=== PATIENT | male | born 1955 | race Caucasian/White ===

== ENCOUNTER → 2017-09-01 | Outpatient (CLI) | payer OTHER ==
[~2017-09-01] MED LIST: AMARYL2 MG PO; AMARYL4 MG PO; ASPIR 8181 MG PO; BACTRIM DS TAB1 EACH PO; CYMBALTA30 MG PO; DARVOCET-N 1001 EACH PO; DESYREL100 MG PO; DESYREL50 MG; DOESN'T HAVE LIST; FLONASE 0.05%50 MCG NASAL; GENTAMICIN SU3 MG/ML OPHTHALMIC; HYDROCODONE-AP1 EAC6 PO; JANUMET 50-1,01 EACH PO; LATANOPROST 0.2.5 ML OPHTHALMIC; LIPITOR40 MG PO; LISINOPRIL10 MG PO; LISINOPRIL20 MG PO; NEURONTIN 300300 M1 PO; PRINIVIL40 MG PO; TRAMADOL 50 MG50 MG PO; TRAZODONE HCL50 MG PO; VITAMIN B-12500 MCG PO; ZPAK PO
== END ==
LOC: M.RAD 09:34
DX: M54.2 Cervicalgia (principal); M25.511 Pain in right shoulder

== ENCOUNTER → 2017-09-11 | Outpatient (CLI) | payer OTHER | LOC: M.MRI 06:46 | DX: M54.12 Radiculopathy, cervical region (principal); M50.21 Other cervical disc displacement, high cervical region; M50.221 Other cervical disc displacement at C4-C5 level; M50.222 Other cervical disc displacement at C5-C6 level; M50.223 Other cervical disc displacement at C6-C7 level; M47.892 Other spondylosis, cervical region; R93.7 Abnormal findings on diagnostic imaging of other parts of musculoskeletal system ==

== ENCOUNTER → 2018-01-02 | Outpatient (CLI) | payer OTHER | LOC: M.RAD 07:28 | DX: J84.10 Pulmonary fibrosis, unspecified (principal); E11.42 Type 2 diabetes mellitus with diabetic polyneuropathy; R10.12 Left upper quadrant pain; R41.0 Disorientation, unspecified ==

== ENCOUNTER → 2018-01-14 | Outpatient (CLI) | payer OTHER | LOC: M.RAD 01-02 08:10 → M.ULTRA 09:51 | DX: I65.23 Occlusion and stenosis of bilateral carotid arteries (principal); E11.42 Type 2 diabetes mellitus with diabetic polyneuropathy; R10.12 Left upper quadrant pain; R41.0 Disorientation, unspecified ==

== ENCOUNTER → 2018-10-08 | Outpatient (CLI) | payer OTHER ==
[~2018-10-08] VITALS: Ht 167.6 cm; Wt 90.7 kg
[~2018-10-08] MED LIST changes: +BRILINTA90 MG PO; +GLUCOTROL5 MG PO; +LANTUS SUBQ; +NITROGLYCERIN0.4 MG SUBLING; +RANEXA500 MG PO; +TOPROL XL25 MG PO; +VELTASSA8.4 GM PO; +VITAMIN D1000 UNI1 PO
[2018-10-08 08:35] VITALS: BP 146/76
[2018-10-08 08:41] LABS: HEMATOCRIT 36.8 % (42.0-52.0); HEMOGLOBIN 12.3 gm/dL (14.0-18.0); MCH 27.2 pg (26.0-34.0); MCHC 33.3 g/dL (28.0-37.0); MCV 81.7 fL (80.0-100.0); MPV 7.9 fl. (7.2-11.1); RBC 4.51 mil/uL (4.50-6.00); RDW-CV 13.9 % (10.5-14.5); WBC 7.1 thou/uL (4.0-11.0)
[2018-10-08 08:56] LABS: APTT 26.5 Seconds (25.0-31.3); PROTIME 9.9 Seconds (9.20-11.50)
[2018-10-08 09:00] LABS: ALBUMIN 3.5 g/dL (3.4-5.0); ALKALINE PHOSPHATASE 114 U/L (46-116); ANION GAP 7 mmol/L (7-16); BUN 35 mg/dL (7-18); CALCIUM 8.7 mg/dL (8.5-10.1); CHLORIDE 104 mmol/L (98-107); CHOLESTEROL 126 mg/dL (<200); CO2 25 mmol/L (21-32); CREATININE 2.2 mg/dL (0.6-1.3); GLUCOSE 247 mg/dL (70-99); HDL CHOLESTEROL 33 mg/dL (>40); LDL CHOLESTEROL 53 mg/dL (<100); POTASSIUM 4.7 mmol/L (3.5-5.1); SERUM ASSESSMENT Clear; SGOT 15 U/L (15-37); SGPT 22 U/L (30-65); SODIUM 136 mmol/L (136-145); TC:HDL 3.8 Ratio (Not establshd); TOTAL BILIRUBIN 0.4 mg/dL (<0.1-1.0); TOTAL PROTEIN 7.1 g/dL (6.4-8.2); TRIGLYCERIDE 202 mg/dL (<150); VLDL 40 mg/dL (<40)
[2018-10-08 10:06] VITALS: BP 138/77
[2018-10-08 10:32] VITALS: BP 124/59
[2018-10-08 10:47] VITALS: BP 130/66
[2018-10-08 11:01] VITALS: BP 132/67
[2018-10-08 11:16] VITALS: BP 134/74
--- NOTE | 2018-10-08 13:52 | CARD ---
[address] [address] CARDIAC CATH REPORT Name: RENATE WEBB Room: [facility]Y Tiki#: [id number] Admission: 10/08/18 Attend Phys: Bryant Sinha MD Discharge: Date of : 57 Report #: [id number] THIS REPORT FOR: //name// APPROVED REPORT Study performed: 10/08/2018 08:59:39 Patient Details Patient Status: Out-Patient Room #: The patient is a 63 year-old male Event Personnel Bryant Sinha Gas Prover, Mallory Truong RN Associate Civil Engineer, Catherine Hayes Monitor, Asael Dubose Scrub Procedures Performed Art Access - R radial artery , [facility] [id number] [facility] Procedure Narrative The patient was brought electively to the Cardiac Catheterization Laboratory and was prepped and draped in a sterile manner. The right wrist was infiltrated with 2% Lidocaine subcutaneous anesthesia. A Slender Glidesheath sheath was inserted into the right radial artery. Coronary angiography was performed using coronary diagnostic catheters. The right coronary system was accessed and visualized with a DCR: Houston[place] 4.0 5fr catheter. The left coronary system was accessed and visualized with a DCR: Houstonia 4.0 5fr catheter. Left ventricular/Aortic Valve gradient assessed via catheter pullback. The patient tolerated the procedure well and there were no complications associated with the procedure. Intraoperative Conscious Sedation Sedation start time: 09:20 Case end Time: 09:52 Fentanyl 25 mcg Versed 1 mg Fluoro Time: 3.1 minutes Dose: DAP 98553 cGycm2 921.61 mGy Contrast Type and Amount: Visipaque 85 ml Coronary Angiography The patient's coronary anatomy is right [place] [address] CARDIAC CATH REPORT Name: RENATE WEBB Room: [facility]#: [id number] Admission: 10/08/18 Attend Phys: Bryant Sinha MD Discharge: Date of : 57 Report #: [id number] Left Main Fairly long left main with 40% proximal to mid tubular stenosis. LAD 30% mid and 70% distal stenosis. Diagonal 1 No occlusive disease noted. Diagonal 2 No occlusive disease noted. Diagonal 3 No occlusive disease noted. Circumflex 60% tubular proximal narrowing. OM1 Moderate in size and branched. No occlusive disease noted. Right Coronary 10% proximally 20% mid and 30% distal narrowing. The vessel is diffusely moderately plaqued. R PDA 50% mid stenosis. RPLV Marginal branch and free of significant disease. Ramus Large branching vessel with 80% stenosis at the takeoff of a large branched. Left Ventriculography Left Ventriculography was not performed. Hemodynamics The aortic pressure is 123/64 mmHg with a mean of mmHg. The left ventricular pressure is 127/6 mmHg with a mean of mmHg. The left ventricular end diastolic pressure is 14 mmHg. There was no gradient across the aortic valve upon pullback. Conclusion 1. Moderate coronary artery disease as outlined above. 2. Minimally elevated left ventricular end-diastolic pressure. Recommendations 1. Continue aggressive risk factor modification and medical management. Consider percutaneous coronary intervention to the LAD and circumflex symptoms not controlled with medication. <ELECTRONICALLY SIGNED> By: Bryant Sinha MD, FACC 10/08/18 1351 1351 1351Bryant Sinha MD, FACC /INF
== END | disposition home or self-care (01) ==
LOC: M.CL 07:58
PROVIDERS: Internal Medicine Cardiovascular Disease
DX: I25.10 Atherosclerotic heart disease of native coronary artery without angina pectoris (principal); I11.0 Hypertensive heart disease with heart failure; I50.1 Left ventricular failure, unspecified; E11.9 Type 2 diabetes mellitus without complications; M19.90 Unspecified osteoarthritis, unspecified site; Z79.82 Long term (current) use of aspirin; Z79.899 Other long term (current) drug therapy; Z98.890 Other specified postprocedural states

== ENCOUNTER 2018-11-05 10:31 | Observation (INO) | payer OTHER ==
[2018-11-05] VITALS (17 sets, daily range): BP systolic 124–164; BP diastolic 65–87
[~2018-11-05] VITALS: Ht 167.6 cm; Wt 90.7 kg
--- NOTE | ~2018-11-05 | H ---
[address] [address] HISTORY AND PHYSICAL Name: RENATE WEBB Room: [address] [place]#: [id number] Admission: 11/05/18 Attend Phys: Bryant Sinha MD Discharge: 11/06/18 Date of : 57 Report #: [id number] THIS REPORT FOR: //name// Please refer to the History and Physical performed in the physician's office. By: 0648Medical Records Staff RACHEAL /MEHNAZ
[~2018-11-05 10:31] MED LIST changes: -BRILINTA90 MG PO; -NITROGLYCERIN0.4 MG SUBLING; -RANEXA500 MG PO; -VITAMIN D1000 UNI1 PO
[2018-11-05] MEDS ORDERED: VITAMIN D1000 UNI1 PO (11:22)
[2018-11-05] MEDS ORDERED: VELTASSA8.4 GM PO (11:24)
[2018-11-05] MEDS ORDERED: RANEXA500 MG PO (11:24)
[2018-11-05 11:28] LABS: HEMATOCRIT 35.4 % (42.0-52.0); HEMOGLOBIN 11.9 gm/dL (14.0-18.0); MCH 27.5 pg (26.0-34.0); MCHC 33.7 g/dL (28.0-37.0); MCV 81.4 fL (80.0-100.0); MPV 7.6 fl. (7.2-11.1); RBC 4.35 mil/uL (4.50-6.00); WBC 6.8 thou/uL (4.0-11.0)
[2018-11-05 11:36] LABS: CALCIUM 9.3 mg/dL (8.5-10.1); CREATININE 2.5 mg/dL (0.6-1.3); POTASSIUM 5.6 mmol/L (3.5-5.1)
[2018-11-05 11:55] LABS: APTT 27.9 Seconds (25.0-31.3); PROTIME 10.4 Seconds (9.20-11.50)
--- NOTE | 2018-11-05 14:17 | CARD ---
[address] [address] CARDIAC CATH REPORT Name: RENATE WEBB Room: [address] [place]#: [id number] Admission: 11/05/18 Attend Phys: Bryant Sinha MD Discharge: Date of : 57 Report #: [id number] THIS REPORT FOR: //name// APPROVED REPORT Study performed: 11/05/2018 10:48:01 Patient Details Patient Status: Out-Patient Room #: The patient is a 63 year-old male Event Personnel Dr. Ernestine Plascencia Procedures Performed Left heart catheterization selective coronary artery IV and percutaneous coronary intervention to the LAD with deployment of 2 drug-eluting stents Indication Chest pain Risk Factors Hypercholesterolemia, Hypertension Admission/Lab Medications/Medications given during procedure Aspirin, Platelet Aff. Inhib., Angiomax bolus and infusion Procedure Narrative The patient was brought electively to the Cardiac Catheterization Laboratory and was prepped and draped in a sterile manner. The right femoral was infiltrated with 2% Lidocaine subcutaneous anesthesia. A 6 Maori sheath was inserted into the right femoral artery. Coronary angiography was performed using coronary diagnostic catheters. The left coronary system was accessed and visualized with a Diagnostic catheter. Left ventricular/Aortic Valve gradient assessed via catheter pullback. Pre-demployment femoral angiogram was performed . Closure device was deployed with a 6 Fr Angioseal. There was no hematoma. Diagnostic Cath Left Main 40% tubular narrowing LAD 75% tubular mid vessel stenosis with 90% focal distal stenosis Circumflex 75% tubular narrowing of the midportion of this [address] [address] CARDIAC CATH REPORT Name: RENATE WEBB Room: [address] [place]#: [id number] Admission: 11/05/18 Attend Phys: Bryant Sinha MD Discharge: Date of : 57 Report #: [id number] nondominant vessel Right Coronary Dominant vessel with 70% distal narrowing as recently defined Left Ventriculography Left Ventriculography was not performed. Hemodynamics The aortic pressure is 130/70 mmHg with a mean of mmHg. The left ventricular end diastolic pressure is 22 mmHg. There was no gradient across the aortic valve upon pullback. PCI Technique Lesion Anticoagulation was achieved with Angiomax. Percutaneous coronary intervention was performed on the distal LAD. The lesion stenosis prior to intervention was 90% with [place] 3 flow. BALLOON DILATION A Balloon catheter 2.0 by a trek was inserted and inflated up to 12atm for 15seconds. STENT DEPLOYMENT A drug-eluting stent 2.0 x 12 saranya was inserted and inflated up to 10atm for 12seconds. POST STENT DEPLOYMENT BALLOON DILATION A Balloon catheter 2.0 x 8 NC trek was inserted and inflated up to 16atm for 10seconds. Final angiography reveals 0 % stenosis with [place] 3 flow. PCI Technique Lesion 2 Percutaneous Coronary Intervention was performed on the mid LAD. The lesion stenosis prior to intervention was 75% with [place] 3 flow. Stent Deployment A drug-eluting stent 2.25 x 18 mm saranya was inserted and inflated up to 16atm for 15seconds. Final angiography reveals 0 % stenosis with [place] 3 flow. Conclusion #1 significant coronary artery disease characterized by the following: [place] [address] CARDIAC CATH REPORT Name: RENATE WEBB Room: [address] [place]#: [id number] Admission: 11/05/18 Attend Phys: Bryant Sinha MD Discharge: Date of : 57 Report #: [id number] A 40% tubular left main coronary artery narrowing B 75% tubular mid with 90% focal distal LAD stenosis C 75% narrowing in the midportion of the nondominant circumflex D recently defined dominant right coronary artery with 70% distal narrowing #2 moderate elevation of left ventricular end-diastolic pressure at rest #3 successful percutaneous coronary intervention with deployment of sequential drug-eluting stents at the sites of 75% mid and 90% distal LAD stenosis with 0% residual narrowings at both sites and [place]-3 flow to the distal vessel Recommendations Cardiac Risk Reduction Program Aggressive Medical Therapy Medications Administered Aspirin (any) Ticagrelor Diagnostic Cath Approved by: Bryant Sinha MD Date/Time: 11/05/2018 14:16:08 <ELECTRONICALLY SIGNED> By: Elpidio Plascencia MD, [facility] 11/05/18 1417 1417 1417John Yana Plascencia MD, [facility] /INF
--- NOTE | 2018-11-05 18:06 | NUR ---
PT IS A NEW ADMISSION RECEIVED FROM INSPECTOR ASSEMBLY.RECEIVED REPORT FROM INSPECTOR ASSEMBLY NURSE AND ASSUMED CARE OF PT AT 1510.PT IS A/OX4.TRACING SR ON THE MONITOR.IV PATENT WITH FLUID INFUSING AT 150ML/HR.RT GROIN CATH CLEAN DRY AND INTACT.POST CATH PROTOCOL FOLLOWED.POST CATH VSS.ON RA.ADMISSION PAPER WORK COMPLETED AND CHARTED.PT EDUCATED ON IMMOBILIZATION FOR 6 HRS POST CATH.CALL LIGHT AND FALL PRECAUTIONS IN PLACE.HRLY ROUNDING DONE.RESUMED HEART HEALTHY DIET.WILL CONTINUE TO MONITOR.
--- NOTE | 2018-11-05 18:19 | NUR ---
I have reviewed the documentation by MICKY MYERS from 729 to 1819 and I concur with it.
--- NOTE | 2018-11-05 18:25 | EKG ---
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: : 1955 Requested By: Bryant Sinha Order Number: [id number] Reading MD: Bryant Sinha Measurements Intervals [place] Rate: 65 P: 22 ND: 210 QRS: -3 QRSD: 91 T: 11 QT: 375 QTc: 390 Interpretive Statements Sinus rhythm Abnormal R-wave progression, early transition LVH by voltage Anterior ST elevation, probably due to LVH Compared to ECG 06/22/2017 13:04:37 Left ventricular hypertrophy now present ST (T wave) deviation still present Electronically Signed On 11-05-2018 18:25:31 CDT by Bryant Sinha [email or web address] <ELECTRONICALLY SIGNED> By: Bryant Sinha MD, FAC 11/05/18 1825 1129 1129 Bryant Sinha MD, [facility] /EPI
--- NOTE | 2018-11-05 18:27 | EKG ---
[place] [address] ELECTROCARDIOGRAM REPORT Name: RENATE WEBB Room: [address] M.R.#: [id number] Admission: 11/05/18 Attend Phys: Bryant Sinha MD Discharge: Date of : 57 Report #: [id number] THIS REPORT FOR: //name// [facility] Test Date: 2018-11-05 Test Time: 13:30:37 Pat Name: RENATE WEBB Department: Room: 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: : 1955 Requested By: Elpidio Plascencia Order Number: [id number] Reading MD: Bryant Sinha Measurements Intervals [place] Rate: 64 P: 23 MA: 215 QRS: -5 QRSD: 94 T: 11 QT: 383 QTc: 395 Interpretive Statements Sinus rhythm Borderline prolonged MA interval ST elevation, consider early repolarization Compared to ECG 06/22/2017 13:04:37 ST (T wave) deviation still present Electronically Signed On 11-05-2018 18:27:00 CDT by Bryant Sinha [email or web address] <ELECTRONICALLY SIGNED> By: Bryant Sinha MD, FAC 11/05/18 1827 1330 1330 Bryant Sinha MD, [facility] /EPI
[2018-11-06 00:10] VITALS: BP 131/71
[2018-11-06 00:30] VITALS: BP 131/71
[2018-11-06 04:00] VITALS: BP 103/61
[2018-11-06 05:16] LABS: ALKALINE PHOSPHATASE 82 U/L (46-116); ANION GAP 11 mmol/L (7-16); BUN 44 mg/dL (7-18); CALCIUM 8.7 mg/dL (8.5-10.1); CHLORIDE 102 mmol/L (98-107); CHOLESTEROL 124 mg/dL (<200); CO2 22 mmol/L (21-32); GLUCOSE 234 mg/dL (70-99); HDL CHOLESTEROL 33 mg/dL (>40); LDL CHOLESTEROL 73 mg/dL (<100); POTASSIUM 5.4 mmol/L (3.5-5.1); SGOT 12 U/L (15-37); SGPT 16 U/L (30-65); SODIUM 135 mmol/L (136-145); TC:HDL 3.8 Ratio (Not establshd); TOTAL BILIRUBIN 0.4 mg/dL (<0.1-1.0); TOTAL PROTEIN 6.4 g/dL (6.4-8.2); TRIGLYCERIDE 92 mg/dL (<150); VLDL 18 mg/dL (<40)
[2018-11-06 05:20] LABS: SERUM ASSESSMENT Clear
--- NOTE | 2018-11-06 07:48 | NUR ---
RECEIVED REPORT AND ASSUMED CARE AT 1900. VSS. CARDIAC MONITORING IN PLACE. PT DENIES COMPLAINTS OF PAIN. PT UP SBA, ON RA. BED LOCKED IN LOWEST POSITION, CALL LIGHT WITHIN REACH, BED ALARM ON. PT CATH SITE TO R GROIN MONITORED THROUGHOUT SHIFT. CLEAN/INTACT/ NO SIGN OF HEMATOMA. HOURLY ROUNDING COMPLETED AND ALL NEEDS MET
[2018-11-06 08:00] VITALS: BP 111/62
[2018-11-06 08:30] VITALS: BP 141/79
[2018-11-06] MEDS ORDERED: BRILINTA90 MG PO (08:55)
[2018-11-06 09:19] VITALS: BP 111/62
--- NOTE | 2018-11-06 09:49 | NUR ---
ASSUMED PT. CARE AND RECEIVED REPORT AT 0730. PT A/OX4, VSS, MONITOR ON TRACING SR 1ST. PT. DENIES CURRENT PAIN/SOB. ON RA @ 95%. FULL ASSESSMENT COMPLETED, REFER TO CHARTING. RIGHT GROIN DRESSING C/D/I. FAMILY AT BEDSIDE. PT. PLAN TO DC TODAY. CALL LIGHT IN REACH, WILL CONTINUE WITH PLAN OF CARE.
--- NOTE | 2018-11-06 11:05 | NUR ---
DC ORDERS RECEIVED. IV AND MONITOR REMOVED. PT. AND SPOUSE GIVEN DC INSTRUCTIONS, SCRIPTS, AND CARENOTES. PT. ALSO GIVEN WRITTEN INFO ON POTASSIUM RICH FOODS PER REQUEST SO HE COULD AVOID THEM. PT. LEFT VIA WHEELCHAIR TO RETURN HOME IN PERSONAL VEHICLE, ALL BELONGINGS ACCOUNTED FOR.
--- NOTE | 2018-11-06 12:18 | EKG ---
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
== END 2018-11-06 11:12 | disposition home or self-care (01) ==
LOC: M.CL 10:31 → M.TBA-CV 13:12 → M.2W 13:12
PROVIDERS: Internal Medicine; ADMIT Internal Medicine Cardiovascular Disease
DX: I20.0 Unstable angina (principal); E78.5 Hyperlipidemia, unspecified; I12.9 Hypertensive chronic kidney disease with stage 1 through stage 4 chronic kidney disease, or unspecified chronic kidney disease; E11.22 Type 2 diabetes mellitus with diabetic chronic kidney disease; N18.9 Chronic kidney disease, unspecified

== ENCOUNTER 2018-11-12 18:11 | Inpatient (IN) | payer OTHER ==
[~2018-11-12] VITALS: Ht 167.6 cm; Wt 90.7 kg
[~2018-11-12 18:11] MED LIST changes: +BRILINTA90 MG PO; +RANEXA500 MG PO; +VITAMIN D1000 UNI1 PO
[2018-11-12 18:37] LABS: ABSOLUTE BASOPHILS 0.1 thou/uL (0.0-0.2); ABSOLUTE EOSINOPHILS 0.6 thou/uL (0.0-0.7); ABSOLUTE LYMPHOCYTES 1.2 thou/uL (0.8-5.3); ABSOLUTE MONOCYTES 0.6 thou/uL (0.0-1.2); ABSOLUTE NEUTROPHILS 5.1 thou/uL (1.6-8.1); BASOPHILS 1.3 %; EOSINOPHILS 8.3 %; HEMATOCRIT 34.3 % (42.0-52.0); HEMOGLOBIN 11.5 gm/dL (14.0-18.0); LYMPHOCYTES 15.8 %; MCH 27.1 pg (26.0-34.0); MCHC 33.6 g/dL (28.0-37.0); MCV 80.9 fL (80.0-100.0); MONOCYTES 7.9 %; MPV 7.4 fl. (7.2-11.1); NUCLEATED RBCS 0 /100WBC; PLATELET COUNT* 329 thou/uL (150-400); POLYS 66.7 %; RBC 4.24 mil/uL (4.50-6.00); RDW-CV 14.1 % (10.5-14.5); WBC 7.6 thou/uL (4.0-11.0)
[2018-11-12 18:43] LABS: INR 0.9; PROTIME 9.7 Seconds (9.20-11.50)
[2018-11-12 18:51] LABS: CALCIUM 8.7 mg/dL (8.5-10.1); CREATININE 2.4 mg/dL (0.6-1.3); POTASSIUM 4.6 mmol/L (3.5-5.1); TROPONIN-I LEVEL 0.31 ng/mL (<0.06)
[2018-11-12 18:53] LABS: ALBUMIN 3.2 g/dL (3.4-5.0); TOTAL BILIRUBIN 0.3 mg/dL (<0.1-1.0); TOTAL PROTEIN 7.4 g/dL (6.4-8.2)
[2018-11-12 20:50] VITALS: BP 146/73
[2018-11-12 21:11] VITALS: BP 155/75
[2018-11-13] VITALS: BP 172/80
[2018-11-13 04:00] VITALS: BP 114/70
[2018-11-13 08:00] VITALS: BP 124/61
[2018-11-13 09:59] LABS: CALCIUM 8.8 mg/dL (8.5-10.1); CREATININE 2.3 mg/dL (0.6-1.3); MAGNESIUM 1.5 mg/dL (1.8-2.4); POTASSIUM 4.4 mmol/L (3.5-5.1)
--- NOTE | 2018-11-13 11:43 | EKG ---
[place] [address] ELECTROCARDIOGRAM REPORT Name: RENATE WEBB Room: [address] ADM IN M.R.#: [id number] Admission: 11/12/18 Attend Phys: Rios Oglesby MD Discharge: Date of : 57 Report #: [id number] THIS REPORT FOR: //name// 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 11/13/18 1143 13 13 Elpidio Plascencia MD, FACC /EPI
--- NOTE | 2018-11-13 13:13 | 2DMMODE ---
[place] [address] 2 D/M-MODE ECHOCARDIOGRAM Name: WEBBRENATE CALVIN Room: [address] IN [facility]#: [id number] Admission: 11/12/18 Attend Phys: Rios Oglesby, Discharge: Date of : 57 Date of Service: 11/13/18 1313 Report #: [id number] THIS REPORT FOR: //name// ADDENDUM APPROVED REPORT Study performed: 11/13/2018 11:23:47 EXAM: Comprehensive 2D, Doppler, and color-flow Echocardiogram Patient Location: In-Patient Room #: [facility] Status: routine BSA: 2.00 HR: 67 bpm BP: 124/61 mmHg Rhythm: NSR Other Information Study Quality: Good Indications Dyspnea Chest Pain 2D Dimensions IVSd: 14.32 (7-11mm) LVOT Diam: 21.62 (18-24mm) LVDd: 40.55 mm PWd: 12.65 (7-11mm) Ascending Ao: 31.00 (22-36mm) LVDs: 19.44 (25-40mm) Aortic Root: 30.89 mm Volumes Left Atrial Volume (Systole) LA ESV Index: 29.70 mL/m2 Aortic Valve AoV Peak Flakito.: 1.30 m/s AO Peak Gr.: 6.71 mmHg LVOT Max P.62 mmHg AO Mean Gr.: 3.78 mmHg LVOT Mean P.60 mmHg LVOT Max V: 0.81 m/s AO V2 VTI: 26.31 cm LVOT Mean V: 0.60 m/s MARY KAY (VTI): 2.49 cm2 LVOT V1 VTI: 17.83 cm Mitral Valve E/A Ratio: 0.98 MV Decel. Time: 235.66 [place] [address] 2 D/M-MODE ECHOCARDIOGRAM Name: RENATE WEBB Room: [address] IN .R.#: [id number] Admission: 11/12/18 Attend Phys: Rios Oglesby, Discharge: Date of : 57 Date of Service: 11/13/18 1313 Report #: [id number] MV E Max Flakito.: 0.63 m/s MV PHT: 68.34 ms MVA (PHT): 3.22 cm2 TDI E/Lateral E': 7.88 E/Medial E': 9.00 Medial E' Flakito.: 0.07 m/s Lateral E' Flakito.: 0.08 m/s Pulmonary Valve PV Peak Flakito.: 1.03 m/s PV Peak Gr.: 4.27 mmHg Left Ventricle The left ventricle is normal size. There is normal LV segmental wall motion. Mild to moderate concentric left ventricular hypertrophy. Left ventricular systolic function is normal. LVEF is 60-65%. Transmitral Doppler flow pattern suggests impaired LV relaxation. Right Ventricle The right ventricle is normal size. The right ventricular systolic function is normal. Atria Left atrium is mildly dilated. The right atrium size is normal. Aortic Valve Mild aortic valve sclerosis. Trace aortic regurgitation. There is no aortic valvular stenosis. Mitral Valve Mitral valve leaflets are thickened. Trace mitral regurgitation. No evidence of mitral valve stenosis. Tricuspid Valve The tricuspid valve is normal in structure. Trace tricuspid regurgitation. No pulmonary hypertension. Pulmonic Valve The pulmonary valve is normal in structure. Trace pulmonic regurgitation. Great Vessels The aortic root is normal in size. IVC is normal in size and collapses >50% [place] [address] 2 D/M-MODE ECHOCARDIOGRAM Name: RENATE WEBB Room: [address] [place] [facility]#: [id number] Admission: 11/12/18 Attend Phys: Rios Oglesby, Discharge: Date of : 57 Date of Service: 11/13/18 1313 Report #: [id number] Pericardium There is no pericardial effusion. <Conclusion> The left ventricle is normal size. Mild to moderate concentric left ventricular hypertrophy. Left ventricular systolic function is normal. LVEF is 60-65%. Transmitral Doppler flow pattern suggests impaired LV relaxation. Left atrium is mildly dilated. Mild aortic valve sclerosis. Trace aortic regurgitation. Mitral valve leaflets are thickened. Trace mitral regurgitation. Trace tricuspid regurgitation. No pulmonary hypertension. IVC is normal in size and collapses >50% with inspiration. <ELECTRONICALLY SIGNED> By: Bryant Sinha MD, FACC 11/13/18 1313 12 12 Bryant Sinha MD, FACC /INF
[2018-11-13 14:45] VITALS: BP 124/61
[2018-11-13 15:50] VITALS: BP 116/69
[2018-11-13 19:35] VITALS: BP 125/72
[2018-11-14] VITALS (7 sets, daily range): BP systolic 103–150; BP diastolic 62–84
[2018-11-14 02:01] LABS: HEMATOCRIT 29.7 % (42.0-52.0); HEMOGLOBIN 10.2 gm/dL (14.0-18.0); MCH 27.8 pg (26.0-34.0); MCHC 34.3 g/dL (28.0-37.0); MPV 7.5 fl. (7.2-11.1); RBC 3.67 mil/uL (4.50-6.00); RDW-CV 14.2 % (10.5-14.5); WBC 7.2 thou/uL (4.0-11.0)
[2018-11-14 02:55] LABS: CALCIUM 8.8 mg/dL (8.5-10.1); CREATININE 2.2 mg/dL (0.6-1.3); MAGNESIUM 1.6 mg/dL (1.8-2.4); POTASSIUM 4.1 mmol/L (3.5-5.1)
[2018-11-15 00:12] VITALS: BP 147/76
[2018-11-15 01:34] LABS: HEMATOCRIT 30.9 % (42.0-52.0); HEMOGLOBIN 10.5 gm/dL (14.0-18.0); MCH 27.4 pg (26.0-34.0); MCHC 33.9 g/dL (28.0-37.0); MCV 80.9 fL (80.0-100.0); RBC 3.82 mil/uL (4.50-6.00); RDW-CV 14.3 % (10.5-14.5); WBC 6.7 thou/uL (4.0-11.0)
[2018-11-15 01:49] LABS: CALCIUM 8.9 mg/dL (8.5-10.1); CREATININE 2.1 mg/dL (0.6-1.3); MAGNESIUM 1.7 mg/dL (1.8-2.4); POTASSIUM 4.4 mmol/L (3.5-5.1); TROPONIN-I LEVEL 0.12 ng/mL (<0.06)
[2018-11-15 04:00] VITALS: BP 139/69
[2018-11-15 08:00] VITALS: BP 143/75
[2018-11-15] MEDS ORDERED: RANEXA500 MG PO (08:54)
[2018-11-15] MEDS ORDERED: NITROGLYCERIN0.4 MG SUBLING (08:54)
[2018-11-15 10:25] VITALS: BP 124/61
--- NOTE | 2018-11-15 12:13 | CON ---
[address] [address] CONSULTATION Name: WEBB,RENTAE Room: [address] IN M.R.#: [id number] Admission: 11/12/18 Attend Phys: Rios Oglesby MD Discharge: 11/15/18 Date of : 57 Report #: [id number] THIS REPORT FOR: //name// CC: Rios Sales INDICATION: Chest pain and elevated troponins consistent with non-ST elevation myocardial infarction. HISTORY OF PRESENT ILLNESS: The patient is a very pleasant 63-year-old gentleman who is well known to myself. He was recently taken to the agriculture laborer for elective percutaneous coronary intervention to the left anterior descending coronary artery. He had drug-eluting stents placed in the mid and distal LAD without complication. He has moderate nonocclusive disease involving the left main, proximal circumflex and distal right coronary artery as well. The patient has preserved left ventricular systolic function. He remains on dual antiplatelet therapy with Brilinta and aspirin. He presented to the hospital for recurrent chest pain. He had a slight bump in his troponin. He reports compliance with his dual antiplatelet therapy. The pain lasted for several hours and then resolved. His troponins were minimally elevated. His EKG did not show any acute ST segment changes. At the time of my interview, he is without complaint. CURRENT MEDICATIONS: Glipizide 5 mg p.o. daily, gabapentin 300 mg 2 tablets p.o. t.i.d., trazodone 50 mg at bedtime. Aspirin 81 mg daily, vitamin B12 500 mg daily, latanoprost eyedrops as directed, Flonase nasal spray 2 sprays daily, insulin Lantus 50 units at bedtime, metoprolol succinate 25 mg daily, vitamin D 1000 units b.i.d., Veltassa ____ grams p.o. daily, duloxetine 30 mg daily, atorvastatin 40 mg daily, lisinopril 10 mg daily, Brilinta 90 mg b.i.d. ALLERGIES: None documented. PAST MEDICAL HISTORY: 1. Coronary artery disease with recent percutaneous coronary intervention as outlined above. 2. Type 2 diabetes mellitus. 3. Hypertension. 4. Arthritis. 5. Peripheral vascular disease. 6. Chronic renal insufficiency, stage 3. FAMILY HISTORY: Noncontributory. SOCIAL HISTORY: The patient is a lifelong nonsmoker[place] [address] CONSULTATION Name: RENATE WEBB Room: [address]#: [id number] Admission: 11/12/18 Attend Phys: Rios Oglesby MD Discharge: 11/15/18 Date of : 57 Report #: [id number]. PHYSICAL EXAMINATION: VITAL SIGNS: Blood pressure 124/61, pulse 67 and regular. GENERAL: This is a pleasant gentleman in no distress. Mood and affect appropriate. HEENT: The patient is wearing glasses. Extraocular muscles intact. Mucous membranes are moist. NECK: Shows no jugular venous distention. There are no carotid bruits. CHEST: Reveals clear lung pretty without wheezes or rales. CARDIAC: Reveals a regular rhythm without gallop or murmur. ABDOMEN: Reveals normal bowel sounds. The abdomen is soft, nontender. EXTREMITIES: Shows no edema. Peripheral pulses 2+ and palpable. SKIN: Warm and dry. LABORATORY DATA: A 12-lead EKG shows sinus rhythm without acute ST or T-wave abnormality. Labs are reviewed. Electrolytes within normal limits. BUN 29, creatinine 2.3, serum glucose 110. Troponin on arrival 0.31 and subsequently 0.36, 0.34, 0.27. IMPRESSION AND RECOMMENDATIONS: 1. Non-ST elevation myocardial infarction. Doubt this represents a true arterial occlusion. We will continue to treat conservatively. Would start heparin drip per Cardiology protocol. I am adding a low dose Imdur for angina. I do not plan on invasive evaluation at this time as long as the patient remains stable. 2. Coronary artery disease with recent percutaneous coronary intervention. Continue dual antiplatelet therapy for a minimum of 6 months. 3. Hypertension. Blood pressure adequately controlled on current regimen outlined above. 4. Hyperlipidemia. Continue atorvastatin with a goal LDL of 70 or less. 5. Nonocclusive bilateral carotid disease, presently stable. 6. Stage 3 chronic renal insufficiency, appears stable at this time. <ELECTRONICALLY SIGNED> By: Bryant Sinha MD, FACC 11/15/18 1213 1148 0834Bryant Sinha MD, FACC /nt
== END 2018-11-15 11:30 | disposition home or self-care (01) | DRG 303 ==
LOC: M.ERS 18:11 → M.TBA-ER 19:35 → M.2W 19:35
PROVIDERS: Emergency Medicine; Internal Medicine; Internal Medicine Cardiovascular Disease; ADMIT Internal Medicine
DX: I25.110 Atherosclerotic heart disease of native coronary artery with unstable angina pectoris (principal); I50.32 Chronic diastolic (congestive) heart failure; I13.0 Hypertensive heart and chronic kidney disease with heart failure and stage 1 through stage 4 chronic kidney disease, or unspecified chronic kidney disease; M19.90 Unspecified osteoarthritis, unspecified site; N18.3 Chronic kidney disease, stage 3 (moderate); E11.51 Type 2 diabetes mellitus with diabetic peripheral angiopathy without gangrene; E11.22 Type 2 diabetes mellitus with diabetic chronic kidney disease; E78.5 Hyperlipidemia, unspecified; I08.1 Rheumatic disorders of both mitral and tricuspid valves; Z95.5 Presence of coronary angioplasty implant and graft; Z79.84 Long term (current) use of oral hypoglycemic drugs; Z79.899 Other long term (current) drug therapy

== ENCOUNTER 2018-12-13 12:04 | Emergency (ER) | payer OTHER ==
[~2018-12-13] VITALS: Ht 167.6 cm; Wt 90.7 kg
[~2018-12-13 12:04] MED LIST changes: +NITROGLYCERIN0.4 MG SUBLING
[2018-12-13 12:43] LABS: ABSOLUTE EOSINOPHILS 0.3 thou/uL (0.0-0.7); ABSOLUTE LYMPHOCYTES 0.7 thou/uL (0.8-5.3); ABSOLUTE MONOCYTES 0.6 thou/uL (0.0-1.2); ABSOLUTE NEUTROPHILS 3.4 thou/uL (1.6-8.1); BASOPHILS 0.9 %; EOSINOPHILS 6.7 %; HEMATOCRIT 32.7 % (42.0-52.0); HEMOGLOBIN 10.9 gm/dL (14.0-18.0); LYMPHOCYTES 13.2 %; MCH 27.7 pg (26.0-34.0); MCHC 33.4 g/dL (28.0-37.0); MONOCYTES 11.4 %; MPV 7.2 fl. (7.2-11.1); NUCLEATED RBCS 0 /100WBC; PLATELET COUNT* 258 thou/uL (150-400); POLYS 67.8 %; RBC 3.94 mil/uL (4.50-6.00); RDW-CV 14.8 % (10.5-14.5)
[2018-12-13 12:50] LABS: ANION GAP 13 mmol/L (7-16); BUN 39 mg/dL (7-18); CALCIUM 9.2 mg/dL (8.5-10.1); CHLORIDE 104 mmol/L (98-107); CO2 17 mmol/L (21-32); CREATININE 2.6 mg/dL (0.6-1.3); GLUCOSE 204 mg/dL (70-99); POTASSIUM 5.3 mmol/L (3.5-5.1); SODIUM 134 mmol/L (136-145)
[2018-12-13 13:01] LABS: ALBUMIN 3.2 g/dL (3.4-5.0); ALKALINE PHOSPHATASE 261 U/L (46-116); NT-PRO BRAIN NAT PEPTIDE 132 pg/mL (<300); SGOT 30 U/L (15-37); SGPT 61 U/L (30-65); TOTAL BILIRUBIN 0.5 mg/dL (<0.1-1.0); TOTAL PROTEIN 7.3 g/dL (6.4-8.2); TROPONIN-I LEVEL <0.06 ng/mL (<0.06)
[2018-12-13 13:12] LABS: URINE BILIRUBIN NEGATIVE (Negative); URINE BLOOD NEGATIVE (Negative); URINE CLARITY CLEAR; URINE COLOR YELLOW; URINE GLUCOSE-RANDOM TRACE (Negative); URINE KETONES NEGATIVE (Negative); URINE LEUKOCYTES-REFLEX NEGATIVE (Negative); URINE NITRITE-REFLEX NEGATIVE (Negative); URINE PROTEIN 1+ (Negative); URINE UROBILINOGEN 0.2 E.U./dl (0.2-1.0)
[2018-12-13 16:55] VITALS: BP 129/80
--- NOTE | 2018-12-14 12:44 | EKG ---
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: Christian BLAIR : 1955 Requested By: Michelle Orantes Order Number: [id number] MD: Elpidio Plascencia Measurements Intervals [place] Rate: 81 P: 18 MT: 186 QRS: -2 QRSD: 94 T: 11 QT: 341 QTc: 396 Interpretive Statements Sinus rhythm Minimal ST elevation, lateral leads Compared to ECG 11/12/2018 18:14:48 No significant changes Electronically Signed On 12-14-2018 12:44:07 CDT by Elpidio Plascencia [email or web address] <ELECTRONICALLY SIGNED> By: Elpidio Plascencia MD, [facility] 12/14/18 1244 1213 121 Elpidio Plascencia MD, FAC /EPI
== END 2018-12-13 16:56 | disposition home or self-care (01) ==
LOC: M.ERS 12:04
PROVIDERS: Nurse Practitioner Family
DX: I12.9 Hypertensive chronic kidney disease with stage 1 through stage 4 chronic kidney disease, or unspecified chronic kidney disease (principal); E11.22 Type 2 diabetes mellitus with diabetic chronic kidney disease; N18.9 Chronic kidney disease, unspecified; M19.90 Unspecified osteoarthritis, unspecified site; Z79.4 Long term (current) use of insulin; Z95.5 Presence of coronary angioplasty implant and graft

== ENCOUNTER → 2019-01-04 | Outpatient (CLI) | payer OTHER ==
--- NOTE | 2019-01-04 16:01 | 2DMMODE ---
[place] [address] 2 D/M-MODE ECHOCARDIOGRAM Name: RENATE WEBB Room: [facility]#: [id number] Admission: 01/04/19 Attend Phys: Bryant Sinha, Discharge: Date of : 57 Date of Service: 01/04/19 1601 Report #: [id number] THIS REPORT FOR: //name// APPROVED REPORT Study performed: 01/04/2019 13:42:50 EXAM: Comprehensive 2D, Doppler, and color-flow Echocardiogram Patient Location: Out-Patient BSA: 1.96 HR: 66 bpm BP: 124/61 mmHg Other Information Study Quality: Good Indications CAD 2D Dimensions IVSd: 11.01 (7-11mm) LVOT Diam: 20.68 (18-24mm) LVDd: 45.18 mm PWd: 10.24 (7-11mm) Ascending Ao: 32.08 (22-36mm) LVDs: 23.24 (25-40mm) Aortic Root: 29.99 mm Volumes Left Atrial Volume (Systole) LA ESV Index: 12.70 mL/m2 Aortic Valve AoV Peak Flakito.: 1.30 m/s AO Peak Gr.: 6.71 mmHg LVOT Max P.91 mmHg AO Mean Gr.: 3.61 mmHg LVOT Mean P.44 mmHg LVOT Max V: 0.85 m/s AO V2 VTI: 26.28 cm LVOT Mean V: 0.55 m/s MARY KAY (VTI): 2.47 cm2 LVOT V1 VTI: 19.31 cm Mitral Valve E/A Ratio: 0.84 MV Decel. Time: 263.14 ms MV E Max Flakito.: 0.58 m/s MV PHT: 76.31 ms MVA (PHT): 2.88 [place]2 [place] [address] 2 D/M-MODE ECHOCARDIOGRAM Name: WEBB,ALBERT Room: [facility]#: [id number] Admission: 01/04/19 Attend Phys: Bryant Sinha, Discharge: Date of : 57 Date of Service: 01/04/19 1601 Report #: [id number] TDI E/Lateral E': 6.44 E/Medial E': 9.67 Medial E' Flakito.: 0.06 m/s Lateral E' Flakito.: 0.09 m/s Pulmonary Valve PV Peak Flakito.: 0.96 m/s PV Peak Gr.: 3.66 mmHg Tricuspid Valve RAP Estimate: 5.00 mmHg TR Peak Gr.: 18.37 mmHg RVSP: 23.37 mmHg PA Pressure: 23.37 mmHg Left Ventricle The left ventricle is normal size. There is normal LV segmental wall motion. There is normal left ventricular wall thickness. Left ventricular systolic function is normal. The left ventricular ejection fraction is within the normal range. LVEF is 55-60%. Grade I - abnormal relaxation pattern. Right Ventricle The right ventricle is normal size. The right ventricular systolic function is normal. Atria The left atrium size is normal. The right atrium size is normal. Aortic Valve Aortic valve is mildly calcified. Trace aortic regurgitation. There is no aortic valvular stenosis. Mitral Valve Mitral valve leaflets are mildly thickened. Mild mitral regurgitation. No evidence of mitral valve stenosis. Tricuspid Valve The tricuspid valve is normal in structure. Mild tricuspid regurgitation. Pulmonic Valve The pulmonary valve is normal in structure. There is no pulmonic valvular regurgitation[place] [address] 2 D/M-MODE ECHOCARDIOGRAM Name: RENATE WEBB [id number] Admission: 01/04/19 Attend Phys: Bryant Sinha, Discharge: Date of : 57 Date of Service: 01/04/19 1601 Report #: [id number] The aortic root is normal in size. IVC is normal in size and collapses >50% with inspiration. Pericardium There is no pericardial effusion. <Conclusion> The left ventricle is normal size. There is normal left ventricular wall thickness. Left ventricular systolic function is normal. The left ventricular ejection fraction is within the normal range. LVEF is 55-60%. Grade I - abnormal relaxation pattern. The right ventricle is normal size. The left atrium size is normal. Aortic valve is mildly calcified. Trace aortic regurgitation. There is no aortic valvular stenosis. Mitral valve leaflets are mildly thickened. Mild mitral regurgitation. No evidence of mitral valve stenosis. The tricuspid valve is normal in structure. Mild tricuspid regurgitation. IVC is normal in size and collapses >50% with inspiration. There is no pericardial effusion. There is normal LV segmental wall motion. <ELECTRONICALLY SIGNED> By: Elpidio Plascencia MD, FACC 01/04/19 1601 160 160 Elpidio Plascencia MD, FACC /INF
== END ==
LOC: M.CRD 13:06
DX: I08.3 Combined rheumatic disorders of mitral, aortic and tricuspid valves (principal); I25.10 Atherosclerotic heart disease of native coronary artery without angina pectoris

== ENCOUNTER 2019-01-29 18:48 | Emergency (ER) | payer OTHER ==
[~2019-01-29] VITALS: Ht 167.6 cm; Wt 88.5 kg
[2019-01-29] MEDS ORDERED: PLAVIX 75 MG TA75 M1 PO (18:58)
[2019-01-29 20:18] VITALS: BP 145/69
== END 2019-01-29 20:19 | disposition home or self-care (01) ==
LOC: M.ERS 18:48
DX: S50.01XA Contusion of right elbow, initial encounter (principal); E11.9 Type 2 diabetes mellitus without complications; I10 Essential (primary) hypertension; M19.90 Unspecified osteoarthritis, unspecified site; Z79.4 Long term (current) use of insulin; W18.39XA Other fall on same level, initial encounter; Y93.89 Activity, other specified; Y92.89 Other specified places as the place of occurrence of the external cause; Y99.8 Other external cause status

== ENCOUNTER → 2019-04-01 | Outpatient (CLI) | payer OTHER ==
[~2019-04-01] MED LIST changes: +PLAVIX 75 MG TA75 M1 PO
--- NOTE | 2019-04-01 11:32 | CARDNUC ---
[place] [address] CARDIAC NUCLEAR IMAGING REPORT Name: RENATE WEBB Room: [facility]#: [id number] Admission: 04/01/19 Attend Phys: Bryant Sinha, Discharge: Date of : 57 Date of Service: 04/01/19 1132 Report #: [id number] THIS REPORT FOR: //name// APPROVED REPORT Imaging Protocol: Rest Tc-99m/Stress Tc-99m 1 day Study performed: 04/01/2019 07:30:00 Indication: Dyspnea Patient Location: Out-Patient Stress Tech: Guerda Rivera Stress Nurse: Vanessa Guerrero RN NM Tech:CHRISTOPHER Mays Ht: 5 ft 6 in Wt: 193 lbs BSA: 1.97 m2 BMI: 31.14 Medical History Medical History: cad, hyperlipidemia, hypertension, pvd, diabetes Medications: metoprolol, asa-81, atorvastatin, plavix, lisinopril Allergies: nkda Cardiac Risk Factors: age, hyperlipidemia, hypertension, pvd, diabetes Previous Cardiac Procedures: pci Exercise History: Physically active Meds Held (24 hrs): metoprolol Resting Data Rest SPECT myocardial perfusion imaging was performed in supine position 30 minutes following the intravenous injection of 12.0 mCi of Time of rest injection: 0750 Date: 04/01/2019 The images were gated to evaluate regional wall motion and calculate left ventricular ejection fraction. Administration Route: IV Administration Site: Right Wrist Pharmacologic Stress Pharmacologic stress test was performed by injecting Regadenoson 0.4 mg IV push over 10-15 seconds immediately followed by the intravenous injection of 34.4 mCi of Tc-99m Sestamibi. Time of stress injection: 929 Date: 04/01/2019 Administration Route: [place] [address] CARDIAC NUCLEAR IMAGING REPORT Name: RENATE WEBB Room: [facility]#: [id number] Admission: 04/01/19 Attend Phys: Bryant Sinha, Discharge: Date of : 57 Date of Service: 04/01/19 1132 Report #: [id number] Administration Site: Right Wrist Gated Stress SPECT was performed 40 minutes after stress injection. The images were gated to evaluate regional wall motion and calculate left ventricular ejection fraction. Prone imaging was performed. Stress Test Details Stress Test: Exercise stress converted to pharmacologic stress due to failure to obtain a diagnostic stress test. Reason for pharmacologic stress test: changed from exercise stress test due to inability to reach target heart rate. HR Max Heart Rate (APMHR): 157 bpm Resting HR: 64 bpm Target HR (85% APMHR): 133 bpm Max HR Achieved: 86 bpm % of APMHR: 54 Recovery HR: 79 bpm HR response to stress: Normal HR response to stress BP Resting BP: 125/74 mmHg Max BP: 157/57 mmHg Recovery BP: 135/74 mmHg BP response to stress: Normal blood pressure response to stress. ECG Resting ECG: Sinus Rhythm, normal EKG Stress ECG: Sinus Rhythm, normal EKG ST Change: None Arrhythmia: None Recovery ECG: Sinus Rhythm, normal EKG Recovery ST Change: None Recovery Arrhythmia: None Clinical Reason for Termination: Completed protocol Stress Symptoms: None Stress ECG Conclusion Normal hemodynamic response to pharmacologic stress. Non-diagnostic ekg stress due to failure to attain target HR. Study Quality Study: Good Artifact: [place] [address] CARDIAC NUCLEAR IMAGING REPORT Name: RENATE WEBB Room: [facility]#: [id number] Admission: 04/01/19 Attend Phys: Bryant Sinha, Discharge: Date of : 57 Date of Service: 04/01/19 1132 Report #: [id number] Lung Uptake: Normal Study Data At rest, the left ventricular ejection fraction was 62%.. Post stress, the left ventricular ejection was 69%.. TID = 0.92. Perfusion No evidence of stress induced ischemia or prior myocardial infarction. Images were reviewed using [email or web address]. Wall Motion Normal left ventricular wall motion. Nuclear Conclusion ECG Findings: negative for ischemia Clinical Findings: negative for ischemia Nuclear Findings: negative for ischemia Exercise Capacity: not assessed Left Ventricular Function: normal Risk Study: low Normal study. No scintigraphic evidence for myocardial ischemia or scar. <Conclusion> Normal hemodynamic response to pharmacologic stress. Non-diagnostic ekg stress due to failure to attain target HR. <ELECTRONICALLY SIGNED> By: Yoko Lopez MD, [facility] 04/01/19 1132 113 113 Yoko Lopez MD, FACC /INF
== END ==
LOC: M.NUC 07:19
DX: I65.23 Occlusion and stenosis of bilateral carotid arteries (principal); I77.1 Stricture of artery; I25.10 Atherosclerotic heart disease of native coronary artery without angina pectoris; E78.5 Hyperlipidemia, unspecified; I10 Essential (primary) hypertension; E11.9 Type 2 diabetes mellitus without complications; I73.9 Peripheral vascular disease, unspecified

== ENCOUNTER → 2019-09-21 | Outpatient (CLI) | payer OTHER, SELFPAY | LOC: M.MRI 11:40 | DX: S83.241A Other tear of medial meniscus, current injury, right knee, initial encounter (principal); X58.XXXA Exposure to other specified factors, initial encounter; Y93.89 Activity, other specified; Y92.89 Other specified places as the place of occurrence of the external cause; Y99.8 Other external cause status ==

== ENCOUNTER 2020-03-01 15:14 | Emergency (ER) | payer OTHER ==
[~2020-03-01] VITALS: Ht 167.6 cm; Wt 90.7 kg
[2020-03-01] MEDS ORDERED: TOPROL XL100 MG PO (15:25)
[2020-03-01 15:46] LABS: ABSOLUTE EOSINOPHILS 0.3 thou/uL (0.0-0.7); ABSOLUTE LYMPHOCYTES 1.5 thou/uL (0.8-5.3); ABSOLUTE MONOCYTES 0.6 thou/uL (0.0-1.2); ABSOLUTE NEUTROPHILS 4.4 thou/uL (1.6-8.1); BASOPHILS 0.5 %; EOSINOPHILS 4.3 %; HEMOGLOBIN 11.7 gm/dL (14.0-18.0); LYMPHOCYTES 21.8 %; MCH 28.8 pg (26.0-34.0); MCHC 34.3 g/dL (28.0-37.0); MCV 83.8 fL (80.0-100.0); MONOCYTES 8.5 %; MPV 7.3 fl. (7.2-11.1); NUCLEATED RBCS 0 /100WBC; PLATELET COUNT* 234 thou/uL (150-400); POLYS 64.9 %; RBC 4.05 mil/uL (4.50-6.00); WBC 6.7 thou/uL (4.0-11.0)
[2020-03-01 15:49] LABS: CALCIUM 7.8 mg/dL (8.5-10.1); CREATININE 2.7 mg/dL (0.6-1.3); POTASSIUM 4.9 mmol/L (3.5-5.1)
[2020-03-01 15:53] LABS: APTT 25.7 Seconds (25.0-31.3); PROTIME 10.6 Seconds (9.20-11.50)
[2020-03-01 15:54] LABS: ALBUMIN 3.2 g/dL (3.4-5.0); TOTAL BILIRUBIN 0.4 mg/dL (<0.1-1.0); TOTAL PROTEIN 6.5 g/dL (6.4-8.2)
[2020-03-01 16:19] LABS: URINE BILIRUBIN NEGATIVE (Negative); URINE BLOOD NEGATIVE (Negative); URINE CLARITY CLEAR; URINE COLOR YELLOW; URINE GLUCOSE-RANDOM NEGATIVE (Negative); URINE KETONES NEGATIVE (Negative); URINE LEUKOCYTES-REFLEX NEGATIVE (Negative); URINE NITRITE-REFLEX NEGATIVE (Negative); URINE PROTEIN 2+ (Negative); URINE SPECIFIC GRAVITY >= 1.030 (1.005-1.030); URINE UROBILINOGEN 0.2 E.U./dl (0.2-1.0)
[2020-03-01 16:28] LABS: CRYSTALS None Seen /LPF (None Seen); HYALINE CASTS >10 Many /LPF (None Seen); MUCUS None Seen strn/LPF (None Seen); SQUAMOUS 0-3 Few /LPF (0-3); URINE WBC-REFLEX 0-5 Rare /HPF (0-5)
[2020-03-01 16:29] LABS: BACTERIA-REFLEX 1-9 Few /HPF (None Seen); URINE RBC 0-2 Rare /HPF (0-2)
[2020-03-01 17:30] VITALS: BP 136/76
--- NOTE | 2020-03-02 08:47 | EKG ---
[place] [address] ELECTROCARDIOGRAM REPORT Name: RENATE WEBB Room: [facility]#: [id number] Admission: 03/01/20 Attend Phys: Discharge: 03/01/20 Date of : 57 Date of Service: 03/01/20 1521 Report #: [id number] THIS REPORT FOR: //name// [facility] ED Test Date: 2020-03-01 Test Time: 15:21:17 Pat Name: RENATE WEBB Department: Room: Gender: Data Solutions Architect: DSDarling : 1955 Requested By: Billie Newell Order Number: [id number] MD: Bryant Sinha Measurements Intervals [place] Rate: 79 P: 28 [place]: 214 QRS: -12 QRSD: 93 T: 31 QT: 366 QTc: 420 Interpretive Statements Sinus rhythm Borderline prolonged [place] interval Borderline ST elevation, anterior leads, early repolarization Compared to ECG 12/13/2018 12:13:01 No significant changes Electronically Signed On 03-02-2020 8:46:48 CDT by Bryant Sinha [email or web address] <ELECTRONICALLY SIGNED> By: Bryant Sinha MD, FAC 03/02/20 0846 1521 1521 Bryant Sinha MD, [facility] /EPI
== END 2020-03-01 17:31 | disposition home or self-care (01) ==
LOC: M.ERS 15:14
PROVIDERS: Nurse Practitioner Family
DX: I10 Essential (primary) hypertension (principal); R42 Dizziness and giddiness; E11.9 Type 2 diabetes mellitus without complications; M19.90 Unspecified osteoarthritis, unspecified site; Z95.5 Presence of coronary angioplasty implant and graft

== ENCOUNTER 2020-03-19 14:12 | Observation (INO) | payer OTHER ==
[~2020-03-19] VITALS: Ht 152.4 cm; Wt 87.6 kg
--- NOTE | ~2020-03-19 | CON ---
[address] [address] CONSULTATION Name: RENATE WEBB Room: [address] [place]#: [id number] Admission: 03/19/20 Attend Phys: Sami Montiel Discharge: Date of : 57 Report #: [id number] THIS REPORT FOR: //name// cc: Mary Lou Sales Linda J. DO ~ THIS REPORT FOR: //name// CC: Mary Lou Caldera DATE OF SERVICE: 03/20/2020 HISTORY OF PRESENT ILLNESS: This is a 65-year-old male patient who was seen by me for dizziness. He said the dizziness started about a week ago and then it became worse yesterday. He was not any more dizzy when he tried to stand up versus lying down. In fact, he did not know any aggravating or relieving factor for the dizziness. Dizziness is better today. He had some occasional episode of dizziness before, but he did not have any symptoms like this before. REVIEW OF SYSTEMS: Positive for multiple problems. Those problems include diabetes, hypertension, arthritis, peripheral vascular disease, renal disease. He had a cardiac stent placed in the past. He is on multiple medications including trazodone and duloxetine. He does not feel depressed at the moment. He is not complaining of any new eye, ENT, cardiac, respiratory, GI, , musculoskeletal, constitutional, dermatological, hematological, psychiatric, throat, allergic symptom associated with present symptomatology. PAST MEDICAL HISTORY: Negative for such a prolonged episode of dizziness, but he said he had some sinusitis. FAMILY HISTORY: Noncontributory. SOCIAL HISTORY: He does not smoke or drink any alcohol. PHYSICAL EXAMINATION: Indicate that he is alert. He is responsive. He is able to follow simple and complex command. His speech, concentration, fund of knowledge and memory is at his baseline. Cranial nerve examination 2-12 looks unremarkable. His strength, sensation, reflexes and tone is symmetrical in all 4 extremities. His plantar is withdrawal. His reflexes are elicitable in the lower extremities. He has no cerebellar sign. I could not have a very good look at the patient's fundus. His pulses are palpable. He is moderately built individual. He does not have any dysmorphic features of eyes, ears and face. His vision and hearing looks adequate. Cardiac examination appear unremarkable. No respiratory difficulty was noted. Blood pressure is 137/72, respiration is 19, pulse is 74, temperature [place] 97.6[place] [address] CONSULTATION Name: RENATE WEBB Room: [address] [place]#: [id number] Admission: 03/19/20 Attend Phys: Sami Montiel Discharge: Date of : 57 Report #: [id number] LABORATORY DATA: WBC count is 7.7. His GFR is only 23, but it has been low for a long time. IMPRESSION: Most likely, the dizziness is from some ENT pathology. However, I will suggest doing an MRI of the brain to exclude any posterior fossa pathology and MRA of [place] to see circulation pathology. If they are unremarkable, the next step will be to get an ENT consult on, but that need to be done as an outpatient because no ENT physician comes here. All of this was discussed with him. His options were discussed with him and he wants to follow this plan. Thank you very much for this referral. By: 1629 1636Dillon Weeks MD /nt
[~2020-03-19 14:12] MED LIST changes: +NEURONTIN 300M300 M2 PO; +TOPROL XL100 MG PO
[2020-03-19 14:17] VITALS: BP 129/84
[2020-03-19 14:41] LABS: ABSOLUTE EOSINOPHILS 0.3 thou/uL (0.0-0.7); ABSOLUTE LYMPHOCYTES 1.4 thou/uL (0.8-5.3); ABSOLUTE MONOCYTES 0.6 thou/uL (0.0-1.2); ABSOLUTE NEUTROPHILS 5.3 thou/uL (1.6-8.1); BASOPHILS 0.5 %; EOSINOPHILS 3.6 %; HEMATOCRIT 33.1 % (42.0-52.0); HEMOGLOBIN 11.3 gm/dL (14.0-18.0); LYMPHOCYTES 18.6 %; MCH 28.7 pg (26.0-34.0); MCV 84.4 fL (80.0-100.0); MONOCYTES 8.3 %; MPV 7.1 fl. (7.2-11.1); NUCLEATED RBCS 0 /100WBC; PLATELET COUNT* 298 thou/uL (150-400); RBC 3.93 mil/uL (4.50-6.00); RDW-CV 14.6 % (10.5-14.5); WBC 7.7 thou/uL (4.0-11.0)
[2020-03-19 14:46] LABS: CREATININE 2.8 mg/dL (0.6-1.3); POTASSIUM 5.4 mmol/L (3.5-5.1)
[2020-03-19 14:57] LABS: ALBUMIN 3.1 g/dL (3.4-5.0); TOTAL BILIRUBIN 0.5 mg/dL (<0.1-1.0); TOTAL PROTEIN 6.7 g/dL (6.4-8.2)
[2020-03-19] MEDS ORDERED: ISOSORBIDE MONO60 M1 PO (17:21)
[2020-03-19] MEDS ORDERED: ANTACID650 MG PO (17:25)
[2020-03-19] MEDS ORDERED: VITAMIN B-121000 MC2 PO (17:27)
[2020-03-19 18:30] VITALS: BP 134/75
[2020-03-19 20:00] VITALS: BP 152/85
[2020-03-20 00:51] VITALS: BP 141/83
[2020-03-20 04:00] VITALS: BP 146/77
[2020-03-20 05:43] LABS: CHOLESTEROL 103 mg/dL (<200); HDL CHOLESTEROL 30 mg/dL (>40); LDL CHOLESTEROL 50 mg/dL (<100); TC:HDL 3.4 Ratio (Not establshd); TRIGLYCERIDE 115 mg/dL (<150); VLDL 23 mg/dL (<40)
[2020-03-20 05:57] LABS: SERUM ASSESSMENT CLEAR
[2020-03-20 05:58] LABS: POTASSIUM 4.8 mmol/L (3.5-5.1)
[2020-03-20 08:00] VITALS: BP 112/74
--- NOTE | 2020-03-20 09:31 | EKG ---
[place] [address] ELECTROCARDIOGRAM REPORT Name: RENATE WEBB Room: [address] ADM IN M.R.#: [id number] Admission: 03/19/20 Attend Phys: Jero Caldera Discharge: Date of : 57 Date of Service: 03/19/20 1421 Report #: [id number] THIS REPORT FOR: //name// [facility] ED Test Date: 2020-03-19 Test Time: 14:21:04 Pat Name: RENATE WEBB Department: Room: [facility] Gender: M Enrollment Clerk: : 1955 Requested By: Miguelangel Coronado Order Number: [id number] MD: Toño Olsen Measurements Intervals [place] Rate: 75 P: 22 [place]: 233 QRS: -8 QRSD: 96 T: 30 QT: 375 QTc: 419 Interpretive Statements Sinus rhythm Prolonged [place] interval Borderline ST elevation, anterior leads Baseline wander in lead(s) V3 Compared to ECG 03/01/2020 15:21:17 No significant changes Electronically Signed On 03-20-2020 9:31:07 CDT by Toño Olsen [email or web address] <ELECTRONICALLY SIGNED> By: Toño Olsen MD, FACC 03/20/20 0931 1421 1421 Toño Olsen MD, FAC /EPI
[2020-03-20 12:11] VITALS: BP 137/72
--- NOTE | 2020-03-20 12:31 | 2DMMODE ---
[place] [address] 2 D/M-MODE ECHOCARDIOGRAM Name: RENATE WEBB Room: [address] [place]#: [id number] Admission: 03/19/20 Attend Phys: Jero Caldera Discharge: Date of : 57 Date of Service: 03/20/20 1231 Report #: [id number] THIS REPORT FOR: cc: Mary Lou Sales,Mary Lou Quach,Toño Lacey MD [facility] ~ ADDENDUM APPROVED REPORT Study performed: 03/20/2020 10:31:50 EXAM: Comprehensive 2D, Doppler, and color-flow Echocardiogram Patient Location: In-Patient Room #: [facility] Status: routine BSA: 2.00 HR: 70 bpm BP: 146/77 mmHg Rhythm: NSR Other Information Study Quality: Good Indications CVA/TIA Echo Enhancing Agent Indication: Rule out Shunt Agent(s) / Amount(s) Used: Agitated Saline 10 cc 2D Dimensions IVSd: 12.17 (7-11mm) LVOT Diam: 21.62 (18-24mm) LVDd: 45.08 mm PWd: 9.92 (7-11mm) Ascending Ao: 32.32 (22-36mm) LVDs: 28.18 (25-40mm) Aortic Root: 34.61 mm Volumes Left Atrial Volume (Systole) LA ESV Index: 38.00 mL/m2 Aortic Valve AoV Peak Flakito.: 1.27 m/s AO Peak Gr.: 6.46 mmHg LVOT Max P.76 mmHg AO Mean Gr.: 3.59 mmHg LVOT Mean P.14 [place] [address] 2 D/M-MODE ECHOCARDIOGRAM Name: RENATE WEBB Room: [address] [place] M.R.#: [id number] Admission: 03/19/20 Attend Phys: Jero Caldera Discharge: Date of : 57 Date of Service: 03/20/20 1231 Report #: [id number] LVOT Max V: 0.83 m/s AO V2 VTI: 26.60 cm LVOT Mean V: 0.48 m/s MARY KAY (VTI): 2.61 cm2 LVOT V1 VTI: 18.91 cm Mitral Valve E/A Ratio: 0.85 MV Decel. Time: 183.64 ms MV E Max Flakito.: 0.65 m/s MV PHT: 53.26 ms MVA (PHT): 4.13 cm2 TDI E/Lateral E': 7.22 E/Medial E': 10.83 Medial E' Flakito.: 0.06 m/s Lateral E' Flakito.: 0.09 m/s Pulmonary Valve PV Peak Flakito.: 1.30 m/s PV Peak Gr.: 6.71 mmHg Left Ventricle The left ventricle is normal size. There is normal LV segmental wall motion. There is normal left ventricular wall thickness. Left ventricular systolic function is normal. The left ventricular ejection fraction is within the normal range. LVEF is 60-65%. Grade I - abnormal relaxation pattern. Right Ventricle The right ventricle is normal size. The right ventricular systolic function is normal. Atria Left atrium is mildly dilated. 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 Aortic Valve Mild aortic valve sclerosis. No aortic regurgitation is present. There is no aortic valvular stenosis. Mitral Valve There is mitral annular calcification. Mitral valve leaflets are thickened. Trace mitral regurgitation. No evidence of mitral valve stenosis. Tricuspid Valve The tricuspid valve is normal in [place] [address] 2 D/M-MODE ECHOCARDIOGRAM Name: RENATE WEBB Room: [address] M.R.#: [id number] Admission: 03/19/20 Attend Phys: Jero Caldera Discharge: Date of : 57 Date of Service: 03/20/20 1231 Report #: [id number] pressure. Trace tricuspid regurgitation. Pulmonic Valve The pulmonary valve is normal in structure. Trace pulmonic regurgitation. Great Vessels The aortic root is normal in size. IVC is normal in size and collapses >50% with inspiration. Pericardium There is no pericardial effusion. <Conclusion> LVEF is 60-65%. Left atrium is mildly dilated. Mild aortic valve sclerosis. 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
[2020-03-20 17:17] VITALS: BP 128/75
[2020-03-20 20:00] VITALS: BP 141/81
[2020-03-20 22:50] LABS: URINE BILIRUBIN NEGATIVE (Negative); URINE BLOOD NEGATIVE (Negative); URINE CLARITY CLEAR; URINE COLOR YELLOW; URINE GLUCOSE-RANDOM TRACE (Negative); URINE KETONES NEGATIVE (Negative); URINE LEUKOCYTES-REFLEX NEGATIVE (Negative); URINE NITRITE-REFLEX NEGATIVE (Negative); URINE PROTEIN 2+ (Negative); URINE SPECIFIC GRAVITY 1.025 (1.005-1.030); URINE UROBILINOGEN 0.2 E.U./dl (0.2-1.0)
[2020-03-21 00:07] VITALS: BP 138/83
[2020-03-21 00:27] LABS: SQUAMOUS 0-3 Few /LPF (0-3)
[2020-03-21 00:30] LABS: HYALINE CASTS 0-3 Few /LPF (None Seen); URINE WBC-REFLEX 0-5 Rare /HPF (0-5)
[2020-03-21 00:31] LABS: BACTERIA-REFLEX 1-9 Few /HPF (None Seen); CRYSTALS None Seen /LPF (None Seen)
[2020-03-21 00:32] LABS: URINE RBC 0-2 Rare /HPF (0-2)
[2020-03-21 03:06] LABS: GLYCOHEMOGLOBIN (HGB A1C) 8.5 % (4.8-5.6)
[2020-03-21 04:47] VITALS: BP 116/66
[2020-03-21 05:54] LABS: ABSOLUTE BASOPHILS 0.1 thou/uL (0.0-0.2); ABSOLUTE EOSINOPHILS 0.3 thou/uL (0.0-0.7); ABSOLUTE LYMPHOCYTES 1.4 thou/uL (0.8-5.3); ABSOLUTE MONOCYTES 0.7 thou/uL (0.0-1.2); ABSOLUTE NEUTROPHILS 5.5 thou/uL (1.6-8.1); BASOPHILS 0.7 %; EOSINOPHILS 3.8 %; HEMATOCRIT 32.6 % (42.0-52.0); LYMPHOCYTES 17.8 %; MCH 28.3 pg (26.0-34.0); MCHC 33.9 g/dL (28.0-37.0); MCV 83.4 fL (80.0-100.0); MONOCYTES 9.3 %; NUCLEATED RBCS 0 /100WBC; PLATELET COUNT* 281 thou/uL (150-400); POLYS 68.4 %; RBC 3.91 mil/uL (4.50-6.00); RDW-CV 14.6 % (10.5-14.5)
[2020-03-21 06:15] LABS: ALBUMIN 2.9 g/dL (3.4-5.0); CALCIUM 8.3 mg/dL (8.5-10.1); CREATININE 2.7 mg/dL (0.6-1.3); POTASSIUM 4.8 mmol/L (3.5-5.1); TOTAL BILIRUBIN 0.4 mg/dL (<0.1-1.0); TOTAL PROTEIN 6.1 g/dL (6.4-8.2)
[2020-03-21 08:00] VITALS: BP 97/57
[2020-03-21 12:00] VITALS: BP 100/61
--- NOTE | 2020-03-21 16:17 | CON ---
[address] [address] CONSULTATION Name: RENATE WEBB Room: [address] [place] MSamantha#: [id number] Admission: 03/19/20 Attend Phys: Sami Montiel Discharge: Date of : 57 Report #: [id number] THIS REPORT FOR: //name// cc: Mary Lou Sales Linda J. DO ~ THIS REPORT FOR: //name// CC: Mary Lou Sharma DATE OF SERVICE: 03/20/2020 CARDIOLOGY CONSULTATION HISTORY OF PRESENT ILLNESS: The is a 65-year-old male who I was asked to see in the hospital today after he complained of being dizzy. The patient has an extensive past medical history. He has a long history of diabetes, hypertension, hyperlipidemia. He presented in September of 2018, complaining of chest pain and shortness of breath. He underwent a cardiac catheterization by Dr. Sinha. The LAD had 70% distal stenosis. Circumflex had a 60% proximal stenosis. Left ventriculography was not performed. He subsequently had 2 coronary stents placed. He has been on Plavix since that time. He underwent a followup stress test in March 2019 that showed diaphragmatic attenuation, but no reversible ischemia, ejection fraction 62%. The patient actually just saw my nurse practitioner on 03/07/2020. At that time, he did complain of dyspnea on exertion. He complained of fatigue. He actually went to the Emergency Room on 03/01/2020 and his blood pressure is elevated. His Ranexa was increased to 1000 mg twice a day. The patient states that yesterday at home, he felt lightheaded, the room was spinning. He took his blood sugar and it was 120. His daughter brought him to the Emergency Room, he was admitted. He denies any recent fever, cough, chest tightness, palpitations, syncope or peripheral edema. He has had no vomiting, bleeding, or diarrhea. PAST MEDICAL HISTORY: He has had a remote tonsillectomy. He has a history of diabetes, hyperlipidemia, hypertension, sleep apnea. He has been diagnosed with neuropathy. MEDICATIONS: Include aspirin, Lipitor, Plavix, Cymbalta, Neurontin, Glucotrol, insulin, Imdur, lisinopril, metoprolol, Ranexa, trazodone. ALLERGIES: He has no known drug allergies. FAMILY HISTORY: His father had heart disease. SOCIAL HISTORY: He is . He 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 No smoking. No alcohol abuse. REVIEW OF SYSTEMS: He has had no history of stroke. He has seasonal allergies. No asthma, liver disease. He has chronic kidney disease. No cancer, no psychiatric illness or chronic skin condition. PHYSICAL EXAMINATION: GENERAL: Revealed a middle-aged male, appeared in no distress. VITAL SIGNS: He had a blood pressure of 140/70, pulse 70, he was afebrile. HEENT: He was anicteric. Conjunctivae pink. Mucous membranes moist. NECK: Veins not distended. No carotid bruits. Neck supple. CHEST: Clear to auscultation. CARDIOVASCULAR: Regular rate and rhythm. ABDOMEN: Soft. EXTREMITIES: Had no edema. SKIN: Warm and dry. NEUROLOGIC: Nonfocal. RADIOLOGICAL DATA: His ECG on admission showed sinus rhythm, no acute ST-segment changes. His workup in the Emergency Room, he had CT scan of the head performed without contrast because of dizziness but showed no acute abnormality. Chest x-ray showed normal heart size and calcified granulomas. LABORATORY WORK: Sodium 138, BUN 48, creatinine 2.8, it was actually 2.5 in 2016. His troponin 0.06. BNP 88. Cholesterol 103, triglyceride 115, HDL 30, LDL 50. White blood cell count 7.7, hemoglobin 11.3. IMPRESSION AND RECOMMENDATIONS: 1. Dizziness. Reason unclear. No arrhythmia noted. Blood pressure appears controlled. 2. Previous coronary artery stent. The patient is on Plavix. 3. Hyperlipidemia. The patient is on a statin drug. 4. Diabetes. 5. Hypertension. The patient is on an FRANCISCO JAVIER inhibitor and beta christina. 6. Chronic kidney disease. The patient followed by Nephrology. 7. Mild carotid stenosis. Previous Doppler showed a 50% stenosis. <ELECTRONICALLY SIGNED> By: Toño Olsen MD, FACC 03/21/20 1617 1035 1102David Deepthi Olsen MD, FACC /nt
[2020-03-21 16:37] VITALS: BP 100/61
== END 2020-03-21 17:10 | disposition home or self-care (01) ==
LOC: M.ERS 14:12 → M.2W 16:14 → M.TBA-ER 16:14 → M.2W 18:20
PROVIDERS: Emergency Medicine Emergency Medical Services; ADMIT Internal Medicine; ATTEND Internal Medicine
DX: R42 Dizziness and giddiness (principal); E87.1 Hypo-osmolality and hyponatremia; E11.22 Type 2 diabetes mellitus with diabetic chronic kidney disease; I12.9 Hypertensive chronic kidney disease with stage 1 through stage 4 chronic kidney disease, or unspecified chronic kidney disease; N18.4 Chronic kidney disease, stage 4 (severe); I25.10 Atherosclerotic heart disease of native coronary artery without angina pectoris; R26.89 Other abnormalities of gait and mobility; M19.90 Unspecified osteoarthritis, unspecified site; E78.5 Hyperlipidemia, unspecified; G47.30 Sleep apnea, unspecified; I65.29 Occlusion and stenosis of unspecified carotid artery; Z79.82 Long term (current) use of aspirin; Z79.4 Long term (current) use of insulin; Z79.899 Other long term (current) drug therapy; Z95.818 Presence of other cardiac implants and grafts; Z20.828 Contact with and (suspected) exposure to other viral communicable diseases

== ENCOUNTER 2020-08-19 13:08 | Emergency (ER) | payer OTHER ==
[~2020-08-19] VITALS: Ht 167.6 cm; Wt 90.7 kg
[~2020-08-19 13:08] MED LIST changes: +ANTACID650 MG PO; +ISOSORBIDE MONO60 M1 PO; +VITAMIN B-121000 MC2 PO
[2020-08-19] MEDS ORDERED: LISINOPRIL20 MG PO (13:19)
[2020-08-19] MEDS ORDERED: KEFLEX500 M1 PO (14:20)
[2020-08-19] MEDS ORDERED: BACTRIM DS TAB1 EACH PO (14:20)
[2020-08-19 14:29] VITALS: BP 141/70
== END 2020-08-19 14:34 | disposition home or self-care (01) ==
LOC: M.ERS 13:08
DX: L03.115 Cellulitis of right lower limb (principal); E11.9 Type 2 diabetes mellitus without complications; I10 Essential (primary) hypertension; M19.90 Unspecified osteoarthritis, unspecified site; Z79.899 Other long term (current) drug therapy; Z79.82 Long term (current) use of aspirin

== ENCOUNTER 2020-08-29 12:40 | Inpatient (IN) | payer OTHER ==
[~2020-08-29] VITALS: Ht 167.6 cm; Wt 61.4 kg
[~2020-08-29 12:40] MED LIST changes: +KEFLEX500 M1 PO
[2020-08-29 12:45] VITALS: BP 107/47
[2020-08-29 13:07] LABS: ABSOLUTE EOSINOPHILS 0.5 thou/uL (0.0-0.7); ABSOLUTE LYMPHOCYTES 1.1 thou/uL (0.8-5.3); ABSOLUTE MONOCYTES 0.9 thou/uL (0.0-1.2); ABSOLUTE NEUTROPHILS 9.8 thou/uL (1.6-8.1); BASOPHILS 0.1 %; EOSINOPHILS 3.7 %; LYMPHOCYTES 9.1 %; MCH 27.2 pg (26.0-34.0); MCHC 31.7 g/dL (28.0-37.0); MCV 85.9 fL (80.0-100.0); MPV 7.6 fl. (7.2-11.1); NUCLEATED RBCS 0 /100WBC; PLATELET COUNT* 275 thou/uL (150-400); POLYS 80.1 %; RBC 4.42 mil/uL (4.50-6.00); RDW-CV 15.4 % (10.5-14.5); WBC 12.3 thou/uL (4.0-11.0)
[2020-08-29] MEDS ORDERED: DULOXETINE HCL60 MG PO (13:08)
[2020-08-29] MEDS ORDERED: GABAPENTIN600 M1 PO (13:09)
[2020-08-29 13:28] LABS: APTT 26.8 Seconds (25.0-31.3); INR 1.1; PROTIME 11.3 Seconds (9.20-11.50)
[2020-08-29 13:31] LABS: CALCIUM 8.1 mg/dL (8.5-10.1); CREATININE 4.4 mg/dL (0.6-1.3)
[2020-08-29 13:32] LABS: POTASSIUM 6.5 mmol/L (3.5-5.1)
[2020-08-29 13:41] LABS: ALBUMIN 2.9 g/dL (3.4-5.0); MAGNESIUM 1.5 mg/dL (1.8-2.4); TOTAL BILIRUBIN 0.2 mg/dL (<0.1-1.0); TOTAL PROTEIN 6.6 g/dL (6.4-8.2)
[2020-08-29 14:47] VITALS: BP 93/57
[2020-08-29 15:00] VITALS: BP 106/61
--- NOTE | 2020-08-29 15:05 | EKG ---
[place] [address] ELECTROCARDIOGRAM REPORT Name: RENATE WEBB Room: [address] ADM IN M.R.#: [id number] Admission: 08/29/20 Attend Phys: Magnolia Dhaliwal MD Discharge: Date of : 57 Date of Service: 08/29/20 1253 Report #: [id number] THIS REPORT FOR: //name// [facility] ED Test Date: 2020-08-29 Test Time: 12:53:53 Pat Name: RENATE WEBB Department: Room: [facility] Gender: M Hvac R Tech: TDS : 1955 Requested By: Billie Newell Order Number: [id number] MD: Toño Olsen Measurements Intervals [place] Rate: 83 P: 33 MS: 209 QRS: -1 QRSD: 93 T: 31 QT: 341 QTc: 401 Interpretive Statements Sinus rhythm left axis Compared to ECG 03/19/2020 14:21:04 First degree AV block no longer present ST (T wave) deviation still present Electronically Signed On 08-29-2020 15:05:31 FOOD SERVICE ASSISTANT by Toño Olsen [email or web address] <ELECTRONICALLY SIGNED> By: Toño Olsen MD, FAC 08/29/20 1505 1253 1253 Toño Olsen MD, FAC /EPI
[2020-08-29 16:00] VITALS: BP 101/57
[2020-08-29 20:34] VITALS: BP 97/58
[2020-08-29 23:36] VITALS: BP 87/45
[2020-08-30] VITALS (7 sets, daily range): BP systolic 93–123; BP diastolic 54–66
[2020-08-30 04:26] LABS: HEMATOCRIT 30.1 % (42.0-52.0); MCH 27.6 pg (26.0-34.0); MCHC 33.1 g/dL (28.0-37.0); MCV 83.4 fL (80.0-100.0); MPV 7.6 fl. (7.2-11.1); RBC 3.61 mil/uL (4.50-6.00); WBC 8.3 thou/uL (4.0-11.0)
[2020-08-30 04:32] LABS: CALCIUM 7.5 mg/dL (8.5-10.1); CREATININE 4.4 mg/dL (0.6-1.3); POTASSIUM 5.8 mmol/L (3.5-5.1)
[2020-08-30 04:37] LABS: HEMOGLOBIN 9.9 gm/dL (14.0-18.0)
[2020-08-30 14:33] LABS: CALCIUM 8.3 mg/dL (8.5-10.1); CREATININE 4.3 mg/dL (0.6-1.3)
[2020-08-30 14:35] LABS: POTASSIUM 6.1 mmol/L (3.5-5.1)
[2020-08-31 04:18] LABS: HEMATOCRIT 30.4 % (42.0-52.0); HEMOGLOBIN 10.1 gm/dL (14.0-18.0); MCH 27.9 pg (26.0-34.0); MCHC 33.1 g/dL (28.0-37.0); MCV 84.1 fL (80.0-100.0); MPV 7.4 fl. (7.2-11.1); RBC 3.61 mil/uL (4.50-6.00); RDW-CV 14.7 % (10.5-14.5); WBC 6.4 thou/uL (4.0-11.0)
[2020-08-31 04:33] VITALS: BP 110/75
[2020-08-31 04:33] LABS: CALCIUM 7.8 mg/dL (8.5-10.1); CREATININE 3.4 mg/dL (0.6-1.3); POTASSIUM 5.2 mmol/L (3.5-5.1)
[2020-08-31 08:10] VITALS: BP 124/70
[2020-08-31 08:32] VITALS: BP 138/78
[2020-08-31 12:00] VITALS: BP 125/71
[2020-08-31 17:33] VITALS: BP 146/80
[2020-08-31 20:00] VITALS: BP 152/82
[2020-09-01] VITALS (7 sets, daily range): BP systolic 122–147; BP diastolic 66–79
[2020-09-01 04:13] LABS: HEMATOCRIT 28.2 % (42.0-52.0); HEMOGLOBIN 9.5 gm/dL (14.0-18.0); MCH 27.9 pg (26.0-34.0); MCHC 33.7 g/dL (28.0-37.0); MCV 82.8 fL (80.0-100.0); MPV 7.2 fl. (7.2-11.1); NUCLEATED RBCS 0 /100WBC; PLATELET COUNT* 212 thou/uL (150-400); RBC 3.41 mil/uL (4.50-6.00); RDW-CV 14.7 % (10.5-14.5)
[2020-09-01 04:29] LABS: CALCIUM 8.5 mg/dL (8.5-10.1)
[2020-09-01 04:55] LABS: CREATININE 2.4 mg/dL (0.6-1.3)
[2020-09-01 06:52] LABS: ABSOLUTE EOSINOPHILS 0.7 thou/uL (0.0-0.7); ABSOLUTE LYMPHOCYTES 1.7 thou/uL (0.8-5.3); ABSOLUTE MONOCYTES 0.4 thou/uL (0.0-1.2); ABSOLUTE NEUTROPHILS 3.2 thou/uL (1.6-8.1); PLATELET ESTIMATE ADEQUATE
--- NOTE | 2020-09-01 09:14 | CON ---
[address] [address] CONSULTATION Name: RENATE WBEB Room: [address] IN M.R.#: [id number] Admission: 08/29/20 Attend Phys: Magnolia Dhaliwal MD Discharge: Date of : 57 Report #: [id number] THIS REPORT FOR: cc: Mary Lou Sales Linda J. DO ~ Latisha Arreaga MD DATE OF SERVICE: 08/31/2020 NEPHROLOGY CONSULTATION CONSULTING PHYSICIAN: Dr. Dhaliwal. REASON FOR NEPHROLOGY CONSULTATION: Acute kidney injury on chronic kidney disease stage 4. HISTORY OF PRESENT ILLNESS: This is a 65-year-old male with history of diabetic and hypertensive nephropathy, chronic kidney disease stage 4. His baseline creatinine is 2.6 to 2.8, also has chronic hyperkalemia maintained on Veltassa at home, dyslipidemia, peripheral vascular disease, was brought in because of generalized weakness and abdominal pain and nausea as well as low blood pressure. He was found to be hyperkalemic with potassium of 6.5 and an acute kidney injury with a creatinine of 4.4. He also was found to have diarrhea. He was found to be C. diff positive. With IV fluids, his potassium has come down slowly and his creatinine also has been improving. At home in addition to other medications as mentioned above, he is on Veltassa for potassium control. He is also on lisinopril 30 mg a day. Renal ultrasound did not show any obstruction. He has been urinating well. His blood pressure has improved somewhat, but is still marginal. The patient has been trying to eat and drink now and feeling better. His creatinine is down to 3.4. He has seen Dr. Dela Cruz at her office in 2019, but after she retired, stopped following with us, but his daughter has been taking him to another mortgage processing manager close to [facility] and patient states he has seen the new mortgage processing manager at least 2 times since he has seen Dr. Dela Cruz. ALLERGIES: No known allergies. REVIEW OF SYSTEMS: As mentioned in history of present illness. He is not a great historian, but was able to obtain review of systems and otherwise, 10-point review of systems done, negative. FAMILY HISTORY: Reviewed and noncontributory. SOCIAL HISTORY: Does not smoke or drink alcohol or use illicit drugs. [place] [address] CONSULTATION Name: RENATE WEBB Room: [address] IN [facility]#: [id number] Admission: 08/29/20 Attend Phys: Magnolia Dhaliwal MD Discharge: Date of : 57 Report #: [id number] PAST MEDICAL AND SURGICAL HISTORY: Includes diabetes type 2. He has chronic kidney disease stage 4, baseline creatinine is 2.6-2.8; chronic hyperkalemia; hypertension; arthritis; peripheral vascular disease; cardiac stents in 10/2018. HOME MEDICATIONS: Include ranolazine, atorvastatin, trazodone, aspirin, latanoprost, fluticasone, glipizide, Lantus, Patiromer, Plavix, metoprolol, Imdur, sodium bicarbonate as needed, vitamin B12, lisinopril 30 mg a day, duloxetine, gabapentin; Bactrim is mentioned in his medications, I am not sure if he was taking that or not. The patient does not have any clue. PHYSICAL EXAMINATION: VITAL SIGNS: Blood pressure is 124/70, temperature 36.7, his pulse rate is 83, respiratory rate is 14, pulse ox is 98%. He was on room air. GENERAL: He is awake, alert and oriented x 3. HEAD AND THROAT: Atraumatic and normocephalic. Conjunctivae normal. Ears, nose, and throat: Normal ears and nose. Mucous membranes are moist. NECK: No JVD. CHEST: Bilaterally clear to auscultation anteriorly. No crackles or wheezing. CARDIOVASCULAR: S1, S2 normal. No murmurs. ABDOMEN: Soft, nondistended, nontender. LOWER EXTREMITIES: No lower extremity edema. NEUROLOGICAL FUNCTION: Gross neurological function is intact. PSYCHIATRIC: Mood and affect seems to be normal. LABORATORY DATA: Hemoglobin is 10.1, WBC 6.4, platelet count is 210. Sodium is 140, potassium is 5.2, CO2 is 19, creatinine is 3.4. Other labs are reviewed. IMAGING: Renal ultrasound, chest x-ray, abdominal CT reports were reviewed. ASSESSMENT: 1. Acute kidney injury on top of chronic kidney disease stage 4. This is due to volume depletion in the setting of diarrhea, hypotension and use of lisinopril at home. His baseline creatinine is around 2.6 to 2.8. He does follow with a mortgage processing manager, followed with [facility]'s group. He came in with a creatinine of 4.4. UA has not been checked. Renal ultrasound was unremarkable. 2. Hypotension in a patient with hypertension. Blood pressure medications on hold. 3. Diabetes type 2. We will defer to primary for management. 4. Chronic hyperkalemia, takes chronic Veltassa at home. He is also maintained on lisinopril at home. 5. Non-gap metabolic acidosis in the setting of renal insufficiency as well as diarrhea. 6. Coronary artery disease, has history of coronary artery stent, stable from that standpoint. [address] [place] [address] CONSULTATION Name: RENATE WEBB Room: [address] ADM IN M.R.#: [id number] Admission: 08/29/20 Attend Phys: Magnolia Dhaliwal MD Discharge: Date of : 57 Report #: [id number] 6. Dyslipidemia. We will defer to primary team for management. 7. Obesity. PLAN: 1. Kidneys are so far improving with fluids, since he has been eating and drinking now, decrease IV fluid rate to 50 mL an hour. He is getting half normal saline with 75 mEq of sodium bicarbonate. 2. Restart Veltassa. 3. Continue renal low potassium diet. 4. Continue to hold lisinopril. Avoid all NSAIDs. 5. Check a UA if possible, it has been ordered since yesterday. 6. Treatment for C. diff infection as per primary team. 7. The patient is overall doing better, upon discharge, he will follow with his outpatient mortgage processing manager. There is no current acute need for dialysis. Thank you for this consultation. We will follow with you. Discussed with the patient and the patient's nurse as well as Dr. Dhaliwal, primary hospitalist. <ELECTRONICALLY SIGNED> By: Latisha Arreaga MD 09/01/20 0914 [id number] zaynab Lang
[2020-09-01] MEDS ORDERED: VANCOMYCIN HCL125 MG PO (10:06)
[2020-09-01] MEDS ORDERED: NEURONTIN 300M300 M2 PO (10:06)
== END 2020-09-01 13:50 | disposition home health service (06) | DRG 371 ==
LOC: M.ERS 12:40 → M.2W 13:49 → M.TBA-ER 13:49 → M.2W 14:55
PROVIDERS: Internal Medicine; Nurse Practitioner Family; ADMIT Family Medicine; ATTEND Family Medicine
DX: A04.72 Enterocolitis due to Clostridium difficile, not specified as recurrent (principal); N17.0 Acute kidney failure with tubular necrosis; N18.4 Chronic kidney disease, stage 4 (severe); E87.1 Hypo-osmolality and hyponatremia; E87.2 Acidosis; E44.1 Mild protein-calorie malnutrition; I12.9 Hypertensive chronic kidney disease with stage 1 through stage 4 chronic kidney disease, or unspecified chronic kidney disease; Z20.822 Contact with and (suspected) exposure to COVID-19; M19.90 Unspecified osteoarthritis, unspecified site; E87.5 Hyperkalemia; I95.1 Orthostatic hypotension; E11.51 Type 2 diabetes mellitus with diabetic peripheral angiopathy without gangrene; E66.9 Obesity, unspecified; E11.22 Type 2 diabetes mellitus with diabetic chronic kidney disease; I95.9 Hypotension, unspecified; I25.10 Atherosclerotic heart disease of native coronary artery without angina pectoris; E78.5 Hyperlipidemia, unspecified; Z95.5 Presence of coronary angioplasty implant and graft; Z68.21 Body mass index [BMI] 21.0-21.9, adult; Z79.82 Long term (current) use of aspirin; Z79.899 Other long term (current) drug therapy

== ENCOUNTER 2021-06-25 12:05 | Emergency (ER) | payer OTHER ==
[~2021-06-25] VITALS: Ht 167.6 cm; Wt 86.2 kg
[~2021-06-25 12:05] MED LIST changes: +DULOXETINE HCL60 MG PO; +GABAPENTIN600 M1 PO; +VANCOMYCIN HCL125 MG PO
[2021-06-25] MEDS ORDERED: LISINOPRIL10 MG PO (12:20)
[2021-06-25] MEDS ORDERED: HYDRALAZINE 10M10 MG PO (12:23)
[2021-06-25 12:59] LABS: INFLUENZA A ANTIGEN Negative (Negative); INFLUENZA B ANTIGEN Negative (Negative)
[2021-06-25 13:17] LABS: ABSOLUTE LYMPHOCYTES 0.8 thou/uL (0.8-5.3); ABSOLUTE MONOCYTES 0.6 thou/uL (0.0-1.2); ABSOLUTE NEUTROPHILS 6.2 thou/uL (1.6-8.1); BASOPHILS 0.3 %; EOSINOPHILS 0.6 %; HEMATOCRIT 31.3 % (42.0-52.0); LYMPHOCYTES 10.3 %; MCH 31.8 pg (26.0-34.0); MCHC 35.2 g/dL (28.0-37.0); MCV 90.3 fL (80.0-100.0); MONOCYTES 8.5 %; MPV 7.3 fl. (7.2-11.1); NUCLEATED RBCS 0 /100WBC; PLATELET COUNT* 165 thou/uL (150-400); POLYS 80.3 %; RBC 3.47 mil/uL (4.50-6.00); RDW-CV 13.6 % (10.5-14.5); WBC 7.7 thou/uL (4.0-11.0)
[2021-06-25 13:24] LABS: CALCIUM 8.1 mg/dL (8.5-10.1); CREATININE 2.4 mg/dL (0.6-1.3); POTASSIUM 4.9 mmol/L (3.5-5.1)
[2021-06-25 13:35] LABS: ALBUMIN 3.1 g/dL (3.4-5.0); TOTAL BILIRUBIN 0.5 mg/dL (<0.1-1.0); TOTAL PROTEIN 6.4 g/dL (6.4-8.2)
[2021-06-25] MEDS ORDERED: TESSALON PERLE100 MG PO (13:45)
[2021-06-25] MEDS ORDERED: VENTOLIN HFA 1818 GM INH (13:45)
[2021-06-25] MEDS ORDERED: MEDROLDOSEPACK PO (13:45)
[2021-06-25] MEDS ORDERED: PROMETHAZINE V120 ML PO (13:45)
[2021-06-25 14:07] VITALS: BP 132/73
--- NOTE | 2021-06-25 16:08 | EKG ---
[place] [address] ELECTROCARDIOGRAM REPORT Name: RENATE WEBB Room: [facility]#: [id number] Admission: 06/25/21 Attend Phys: Discharge: 06/25/21 Date of : 57 Date of Service: 06/25/21 1258 Report #: [id number] THIS REPORT FOR: //name// [facility] ED Test Date: 2021-06-25 Test Time: 12:58:29 Pat Name: RENATE WEBB Department: Room: Gender: M [employer]: : 1955 Requested By: Billie Newell Order Number: [id number] MD: Elpidio Plascencia Measurements Intervals [place] Rate: 80 P: 21 NH: 221 QRS: -10 QRSD: 93 T: 18 QT: 362 QTc: 418 Interpretive Statements Sinus rhythm Prolonged NH interval Borderline ST elevation, anterior leads; normal variant Compared to ECG 08/29/2020 12:53:53 First degree AV block now present ST (T wave) deviation now present Electronically Signed On 06-25-2021 16:08:05 FRAMING CONSULTANT by Elpidio Plascencia [email or web address] <ELECTRONICALLY SIGNED> By: Elpidio Plascencia MD, FACC 06/25/21 1608 1258 1258 Elpidio Plascencia MD, FACC /EPI
== END 2021-06-25 14:08 | disposition home or self-care (01) ==
LOC: M.ERS 12:05
PROVIDERS: Nurse Practitioner Family
DX: N19 Unspecified kidney failure (principal); Z20.822 Contact with and (suspected) exposure to COVID-19; J06.9 Acute upper respiratory infection, unspecified; M19.90 Unspecified osteoarthritis, unspecified site; I12.9 Hypertensive chronic kidney disease with stage 1 through stage 4 chronic kidney disease, or unspecified chronic kidney disease; E11.22 Type 2 diabetes mellitus with diabetic chronic kidney disease; N18.4 Chronic kidney disease, stage 4 (severe); Z79.899 Other long term (current) drug therapy

== ENCOUNTER 2021-08-20 07:36 | Observation (INO) | payer OTHER ==
[~2021-08-20] VITALS: Ht 170.2 cm; Wt 79.4 kg
[~2021-08-20 07:36] MED LIST changes: +HYDRALAZINE 10M10 MG PO; +MEDROLDOSEPACK PO; +PROMETHAZINE V120 ML PO; +TESSALON PERLE100 MG PO; +VENTOLIN HFA 1818 GM INH
[2021-08-20 07:46] VITALS: BP 151/67
[2021-08-20 08:57] LABS: ABSOLUTE LYMPHOCYTES 0.8 thou/uL (0.8-5.3); ABSOLUTE MONOCYTES 0.4 thou/uL (0.0-1.2); BASOPHILS 0.4 %; EOSINOPHILS 0.7 %; HEMATOCRIT 34.7 % (42.0-52.0); HEMOGLOBIN 11.8 gm/dL (14.0-18.0); LYMPHOCYTES 18.9 %; MCHC 33.9 g/dL (28.0-37.0); MCV 91.6 fL (80.0-100.0); MONOCYTES 9.2 %; MPV 7.7 fl. (7.2-11.1); NUCLEATED RBCS 0 /100WBC; PLATELET COUNT* 178 thou/uL (150-400); POLYS 70.8 %; RBC 3.79 mil/uL (4.50-6.00); RDW-CV 13.6 % (10.5-14.5); WBC 4.3 thou/uL (4.0-11.0)
[2021-08-20 10:08] LABS: CALCIUM 8.2 mg/dL (8.5-10.1); CREATININE 2.6 mg/dL (0.6-1.3); POTASSIUM 4.9 mmol/L (3.5-5.1)
[2021-08-20 10:12] LABS: ALBUMIN 3.4 g/dL (3.4-5.0); TOTAL BILIRUBIN 0.6 mg/dL (<0.1-1.0); TOTAL PROTEIN 6.5 g/dL (6.4-8.2)
[2021-08-20 15:00] VITALS: BP 169/77
[2021-08-20] MEDS ORDERED: GABAPENTIN600 M1 PO (17:41)
[2021-08-20] MEDS ORDERED: INSULIN LI100 UNIT/2 SUBQ (17:42)
[2021-08-20] MEDS ORDERED: NITROSTAT0.4 M1 SUBLING (17:44)
[2021-08-20] MEDS ORDERED: OZEMPIC0.25 MG/0. SUBQ (17:45)
[2021-08-20] MEDS ORDERED: SODIUM BICARBO650 M3 PO (17:46)
[2021-08-20] MEDS ORDERED: RANEXA1000 MG PO (17:46)
[2021-08-20 18:46] VITALS: BP 138/73
[2021-08-20 22:30] VITALS: BP 120/74
[2021-08-21 01:50] VITALS: BP 112/69; BP 120/74
[2021-08-21 05:16] LABS: ABSOLUTE EOSINOPHILS 0.1 thou/uL (0.0-0.7); ABSOLUTE LYMPHOCYTES 1.2 thou/uL (0.8-5.3); ABSOLUTE MONOCYTES 0.5 thou/uL (0.0-1.2); ABSOLUTE NEUTROPHILS 3.5 thou/uL (1.6-8.1); BASOPHILS 0.5 %; HEMATOCRIT 34.3 % (42.0-52.0); HEMOGLOBIN 11.6 gm/dL (14.0-18.0); LYMPHOCYTES 22.7 %; MCV 91.2 fL (80.0-100.0); MONOCYTES 9.5 %; MPV 7.6 fl. (7.2-11.1); NUCLEATED RBCS 0 /100WBC; PLATELET COUNT* 171 thou/uL (150-400); POLYS 66.3 %; RBC 3.76 mil/uL (4.50-6.00); RDW-CV 13.4 % (10.5-14.5); WBC 5.2 thou/uL (4.0-11.0)
[2021-08-21 05:58] LABS: ALBUMIN 3.2 g/dL (3.4-5.0); CALCIUM 8.3 mg/dL (8.5-10.1); CREATININE 2.4 mg/dL (0.6-1.3); POTASSIUM 4.9 mmol/L (3.5-5.1); TOTAL BILIRUBIN 0.5 mg/dL (<0.1-1.0); TOTAL PROTEIN 6.3 g/dL (6.4-8.2)
[2021-08-21 08:30] VITALS: BP 119/81
[2021-08-21 12:00] VITALS: BP 131/70
[2021-08-21 16:08] VITALS: BP 121/64
[2021-08-21 20:50] VITALS: BP 115/74
[2021-08-22 01:28] VITALS: BP 101/62
[2021-08-22 03:54] LABS: ABSOLUTE EOSINOPHILS 0.1 thou/uL (0.0-0.7); ABSOLUTE LYMPHOCYTES 1.3 thou/uL (0.8-5.3); ABSOLUTE MONOCYTES 0.5 thou/uL (0.0-1.2); ABSOLUTE NEUTROPHILS 3.5 thou/uL (1.6-8.1); BASOPHILS 0.3 %; EOSINOPHILS 1.4 %; HEMATOCRIT 32.6 % (42.0-52.0); HEMOGLOBIN 10.9 gm/dL (14.0-18.0); LYMPHOCYTES 23.4 %; MCH 31.1 pg (26.0-34.0); MCHC 33.5 g/dL (28.0-37.0); MCV 92.7 fL (80.0-100.0); MONOCYTES 10.1 %; MPV 7.8 fl. (7.2-11.1); NUCLEATED RBCS 0 /100WBC; PLATELET COUNT* 165 thou/uL (150-400); POLYS 64.8 %; RBC 3.51 mil/uL (4.50-6.00); RDW-CV 13.3 % (10.5-14.5); WBC 5.4 thou/uL (4.0-11.0)
[2021-08-22 04:16] LABS: CALCIUM 8.2 mg/dL (8.5-10.1); CREATININE 2.3 mg/dL (0.6-1.3); POTASSIUM 4.6 mmol/L (3.5-5.1); TOTAL BILIRUBIN 0.4 mg/dL (<0.1-1.0)
[2021-08-22 08:10] VITALS: BP 114/60
[2021-08-22] MEDS ORDERED: DECADRON6 MG PO (09:58)
[2021-08-22] MEDS ORDERED: CEFDINIR300 MG PO (10:00)
[2021-08-22 11:49] VITALS: BP 114/60
[2021-08-22 11:50] VITALS: BP 114/60
== END 2021-08-22 12:46 | disposition home or self-care (01) ==
LOC: M.ERS 07:36 → M.2W 10:02 → M.TBA-ER 10:02 → M.2W 10:02
PROVIDERS: Emergency Medicine Emergency Medical Services; ADMIT Internal Medicine; ATTEND Internal Medicine
DX: L03.115 Cellulitis of right lower limb (principal); Z20.822 Contact with and (suspected) exposure to COVID-19; I12.9 Hypertensive chronic kidney disease with stage 1 through stage 4 chronic kidney disease, or unspecified chronic kidney disease; N18.4 Chronic kidney disease, stage 4 (severe); G47.33 Obstructive sleep apnea (adult) (pediatric); E11.22 Type 2 diabetes mellitus with diabetic chronic kidney disease; E11.40 Type 2 diabetes mellitus with diabetic neuropathy, unspecified; M19.90 Unspecified osteoarthritis, unspecified site; E11.610 Type 2 diabetes mellitus with diabetic neuropathic arthropathy; Z79.4 Long term (current) use of insulin; Z79.82 Long term (current) use of aspirin; Z79.899 Other long term (current) drug therapy